=== PATIENT | male | born 1940 | race Caucasian/White ===

== ENCOUNTER 2020-11-15 16:13 | Outpatient (REF) | payer MEDICARE, BC, SELFPAY ==
--- NOTE | 2020-11-15 16:20 | US_ITS ---
EXAMINATION: US RETROPERITONEAL LIMITED (RENAL ONLY) CLINICAL INFORMATION: Calculus of kidney. COMPARISON: Renal ultrasound 09/17/2019 TECHNIQUE: Real-time imaging of the kidneys. FINDINGS: RIGHT KIDNEY: 12.8 x 7.2 x 7.5 cm (SAG x AP x TRV). Kidneys are normal size with cortical thinning but normal echogenicity. There are multiple cysts seen. The largest measures 3.8 x 3.4 x 5.3 cm in upper/midpole. LEFT KIDNEY: 13.5 x 4.5 x 6.1 cm (SAG x AP x TRV). The kidney is normal in size, contour, and echogenicity. Renal cortical thickness is normal. No renal calculi or hydronephrosis. There are multiple anechoic cysts with the largest cyst measuring 2.7 x 2.2 x 2.6 cm in the lower pole. There is isoechoic avascular mass with hypoechoic center in the midpole measuring 3.1 x 2.0 x 2.6 cm. Differential diagnosis includes a complex cyst versus mass. US/US renal BI IMPRESSION: Bilateral renal cysts. No echogenic stones or hydronephrosis. Suspect complex cyst or mass exophytic midpole left kidney not described on the previous [address] 2016, there was focus of central fat with peripheral rim of tissue in the same location exophytic to midpole left kidney thought to be inflammatory process rather than a fatty lesion. Recommend CT kidneys with and without contrast.
[2020-11-15 18:33] LABS: PSA,Total (Free>4and<10) 3.58 ng/mL (0.00-4.00)
== END 2020-11-15 16:14 | disposition home or self-care (01) ==
LOC: HO.US 16:13
PROVIDERS: PCP Internal Medicine; Visit Provider Urology
DX: N20.0 Calculus of kidney (principal); R97.20 Elevated prostate specific antigen [PSA]
CPT/HCPCS: 36415; 76775; 84153

== ENCOUNTER → 2020-11-25 10:34 | Outpatient (BNVA) | payer MEDICARE, BC, SELFPAY | PROVIDERS: PCP Internal Medicine; Visit Provider Urology | DX: N20.0 Calculus of kidney (principal); R97.20 Elevated prostate specific antigen [PSA]; N28.89 Other specified disorders of kidney and ureter | CPT/HCPCS: 81002; 99212 ==

== ENCOUNTER 2020-11-29 10:54 | Outpatient (REF) | payer MEDICARE, BC, SELFPAY ==
[2020-11-29 12:33] LABS: Blood Urea Nitrogen 19 mg/dL (9-16); Estimated Glomerular Filt Rate 51
== END 2020-11-29 10:55 | disposition home or self-care (01) ==
LOC: HO.LAB 10:54
PROVIDERS: Visit Provider Urology
DX: N28.89 Other specified disorders of kidney and ureter (principal); R97.20 Elevated prostate specific antigen [PSA]
CPT/HCPCS: 36415; 82565; 84520

== ENCOUNTER 2020-12-03 13:43 | Outpatient (REF) | payer MEDICARE, BC, SELFPAY ==
--- NOTE | 2020-12-03 13:46 | CT_ITS ---
EXAMINATION: CT ABDOMEN AND PELVIS WITHOUT AND WITH CONTRAST CLINICAL INFORMATION: Follow up renal lesion seen on ultrasound COMPARISON: Previous renal ultrasound most recent 11/15/2020 CT of the abdomen and pelvis June 2019 TECHNIQUE: Multidetector volumetric imaging was performed of the abdomen and pelvis before and after the IV administration of mL of Omnipaque 300 intravenous contrast. Sagittal and coronal reformatted images were obtained on the technologist's workstation. This CT examination was performed using dose optimization techniques as appropriate, variously including the following: *Automated exposure control *Adjustment of mA and/or kV according to patient size (this includes techniques or standardized protocols for targeted exams where dose is matched to indication/reason for exam; i.e. extremities or head) *Use of iterative reconstruction technique DLP: 1638 mGy-cm FINDINGS: LUNG BASES: The visualized lung bases are unremarkable. LIVER, GALLBLADDER, AND BILIARY TREE: The liver is normal in size, shape, and attenuation. No focal hepatic lesion or biliary ductal dilatation is present. The gallbladder is unremarkable with no evidence of radiopaque gallstones, gallbladder wall thickening, or obvious pericholecystic inflammatory changes. PANCREAS: Unremarkable SPLEEN: Unremarkable ADRENAL GLANDS: Unremarkable KIDNEYS AND URETERS: Right: There are two small 1 and 2 mm stones in the lower pole. No hydronephrosis, ureteral dilatation or ureteral stone is seen There are multiple right renal cysts. Largest right renal cyst measures 4 x 3 cm in the upper pole. There is stranding of the perinephric fat adjacent to the lower pole of the right kidney. This is increased from previous exam. Left: There are multiple, greater than 10 left renal stones. Left Largest stone measures 3 mm in the lower pole of the left kidney. No left hydronephrosis, ureteral dilatation or ureteral stone seen. There are multiple left renal cysts. There is a stranding of the perinephric fat adjacent to the lower pole of the left kidney. This is similar to February 2019 exam. BLADDER: There is a 5 x 7 mm stone in the bladder. Prostate gland is enlarged and protrudes into the bladder. GASTROINTESTINAL TRACT: There is diverticulosis of the colon. There is a large left inguinal hernia containing colon. Small and large bowel is otherwise unremarkable. There is an esophageal hernia. ABDOMINAL WALL: Left inguinal hernia containing colon. LYMPH NODES: Normal VASCULAR: There is evidence of atherosclerotic disease. PELVIC VISCERA: The prostate gland is enlarged and protrudes into the base of the bladder. The prostate gland measures 5.2 x 6.3 cm in AP and transverse dimension. OSSEOUS STRUCTURES: There are degenerative changes of the spine. CT/CT abdomen pelvis wo/w con IMPRESSION: Bilateral renal stones, left greater than right. Bilateral renal cysts. Stranding of the perinephric fat adjacent to the lower pole of both kidneys, stable on the left and increased on the right. No suspicious renal lesion seen. Enlarged prostate gland that protrudes into the base of the bladder. 5 x 7 mm bladder stone. Severe diverticulosis of the colon. Large left inguinal hernia containing distal left and proximal sigmoid colon.
[2020-12-03] MEDS: iohexoL 350 MG/ML 100 ML INFUS..BTL 85 ML IV (14:33)
== END 2020-12-03 13:44 | disposition home or self-care (01) ==
LOC: HO.CT 13:43
PROVIDERS: Visit Provider Urology
DX: N28.89 Other specified disorders of kidney and ureter (principal)
CPT/HCPCS: 74178; Q9967

== ENCOUNTER → 2021-02-04 15:21 | Outpatient (BNVA) | payer MEDICARE, BC, SELFPAY | PROVIDERS: PCP Internal Medicine; Visit Provider Urology | DX: N40.1 Benign prostatic hyperplasia with lower urinary tract symptoms (principal); R39.12 Poor urinary stream; N13.8 Other obstructive and reflux uropathy; N28.89 Other specified disorders of kidney and ureter; R39.15 Urgency of urination | CPT/HCPCS: 99212 ==

== ENCOUNTER 2021-07-19 09:28 | Outpatient (REF) | payer MEDICARE, BC, SELFPAY ==
[2021-07-19 11:29] LABS: Blood Urea Nitrogen 29 mg/dL (9-16); Estimated Glomerular Filt Rate 40
== END 2021-07-19 09:29 | disposition home or self-care (01) ==
LOC: HO.LAB 09:28
PROVIDERS: PCP Internal Medicine; Visit Provider Urology
DX: N26.1 Atrophy of kidney (terminal) (principal); N28.89 Other specified disorders of kidney and ureter
CPT/HCPCS: 36415; 82565; 84520

== ENCOUNTER 2021-07-29 08:53 | Outpatient (REF) | payer MEDICARE, BC, SELFPAY ==
--- NOTE | ~2021-07-29 | CT_ITS ---
EXAMINATION: CT ABDOMEN AND PELVIS WITHOUT CONTRAST CLINICAL INFORMATION: Elevated labs. COMPARISON: CT abdomen and pelvis without and with contrast 12/03/2020. TECHNIQUE: Multidetector volumetric imaging was performed from the superior aspect of the liver through the pubic symphysis. Sagittal and coronal reformatted images were obtained on the technologist's workstation. This CT examination was performed using dose optimization techniques as appropriate, variously including the following: *Automated exposure control *Adjustment of mA and/or kV according to patient size (this includes techniques or standardized protocols for targeted exams where dose is matched to indication/reason for exam; i.e. extremities or head) *Use of iterative reconstruction technique DLP: 726 mGy-cm. FINDINGS: LUNG BASES: The visualized lung bases are unremarkable. There is a small hiatal hernia. LIVER, GALLBLADDER, AND BILIARY TREE: The liver is normal in size, shape, and attenuation. No focal hepatic lesion or biliary ductal dilatation is present. There is a solitary gallstone without wall thickening. No pericholecystic fluid collection. PANCREAS: Unremarkable. SPLEEN: Unremarkable. ADRENAL GLANDS: Unremarkable. KIDNEYS AND URETERS: The kidneys are normal in size, shape, and attenuation. There are several hypodense renal lesions most likely simple cysts. There are small bilateral radiopaque renal calculi. There is a 2 mm nonobstructive radiopaque calculi midpole left kidney and a 2 mm nonobstructive radiopaque calculus lower pole calyx right kidney. There are multiple bilateral renal cysts, there is bilateral perinephric stranding with adjacent fat along the lower poles of both kidneys, similar to previous study from 12/03/2020. BLADDER: There are multiple small radiopaque calculi in the dependent portion of the bladder. No bladder wall thickening seen. GASTROINTESTINAL TRACT: There is scattered stool and gas seen throughout the colon without any significant distention. The small bowel loops are normal caliber. There is scattered diverticulosis without diverticulitis. No free air or free fluid. ABDOMINAL WALL: There is a left inguinal hernia containing a loop of sigmoid colon. LYMPH NODES: Normal. VASCULAR: There is atherosclerotic calcification abdominal aorta without aneurysmal dilatation. PELVIC VISCERA: The prostate gland is mildly enlarged. The periprostatic fat planes are preserved. OSSEOUS STRUCTURES: There are degenerative disc changes and spondylosis throughout the lumbar spine. CT/CT abdomen pelvis wo con IMPRESSION: Bilateral nonobstructive radiopaque renal calculi without hydronephrosis. Bilateral renal cysts. There is bilateral perinephric stranding and fat involvement , similar to previous study. There are new radiopaque urinary bladder calculi. There is a left inguinal hernia containing a loop of sigmoid colon and mesenteric fat. It is unchanged.
== END 2021-07-29 08:54 | disposition home or self-care (01) ==
LOC: HO.CT 08:53
PROVIDERS: PCP Internal Medicine; Visit Provider Urology
DX: N28.89 Other specified disorders of kidney and ureter (principal)
CPT/HCPCS: 74176

== ENCOUNTER → 2021-08-09 15:40 | Outpatient (BNVA) | payer MEDICARE, BC, SELFPAY | PROVIDERS: PCP Internal Medicine; Visit Provider Urology | DX: R39.12 Poor urinary stream (principal); N20.0 Calculus of kidney | CPT/HCPCS: 99212 ==

== ENCOUNTER 2021-10-04 10:03 | Outpatient (REF) | payer MEDICARE, BC, SELFPAY ==
[2021-10-04 11:48] LABS: Hematocrit 44.5 % (42.0-52.0); Hemoglobin 14.6 g/dl (14.0-18.0); Mean Corpuscular HGB Conc 32.8 g/dl (31.0-36.0); Mean Corpuscular Hemoglobin 31.9 pg (27.0-33.0); Mean Corpuscular Volume 97.2 fL (80.0-98.0); Mean Platelet Volume 9.9 fL (9.4-12.4); Platelet Count 207 X10*3/uL (160-400); Red Blood Count 4.58 X10*6/uL (4.60-5.80); Red Cell Distribution Width 12.9 % (11.0-16.0); White Blood Count 6.2 X10*3/uL (4.8-10.8)
[2021-10-04 11:57] LABS: Appearance Urine CLEAR; Color Urine YELLOW; Glucose Urine UA NEG (NEG); Leukocyte Esterase Urine NEG (NEG); Nitrite Urine NEG (NEG); Specific Gravity - Urine 1.025 (1.005-1.025); Urine Blood NEG (NEG); Urine Ketones NEG (NEG); Urine Protein NEG (NEG-TRACE)
[2021-10-04 12:12] LABS: Creatinine Urine 127.07 mg/dL; Microalbum/Creatinine Ratio Ur 32.2 ug/mg cr; Total Protein Urine Random 13 mg/dL (<12)
[2021-10-04 12:13] LABS: Calcium 9.9 mg/dL (8.4-10.2); Magnesium 2.2 mg/dL (1.6-2.6); Phosphorus 2.9 mg/dL (2.7-4.5)
[2021-10-04 13:28] LABS: Vitamin D 25-OH Total 39.3 ng/mL (>30)
[2021-10-05 13:41] LABS: Calcium (PTHI) 9.5 mg/dL (8.6-10.3); PTHI 50 pg/mL (14-64)
== END 2021-10-04 10:04 | disposition home or self-care (01) ==
LOC: HO.LAB 10:03
PROVIDERS: PCP Internal Medicine; Visit Provider Internal Medicine Nephrology
DX: N18.32 Chronic kidney disease, stage 3b (principal); N20.0 Calculus of kidney
CPT/HCPCS: 36415; 81003; 82040; 82043; 82306; 82310; 83735; 83970; 84100; 84156; 85027

== ENCOUNTER 2021-11-03 10:05 | Outpatient (REF) | payer MEDICARE, BC, SELFPAY ==
[2021-11-03 11:29] LABS: PSA,Total (Free>4and<10) 3.02 ng/mL (0.00-4.00)
== END 2021-11-03 10:06 | disposition home or self-care (01) ==
LOC: HO.LAB 10:05
PROVIDERS: PCP Internal Medicine; Visit Provider Urology
DX: Z12.5 Encounter for screening for malignant neoplasm of prostate (principal); N40.1 Benign prostatic hyperplasia with lower urinary tract symptoms; N13.8 Other obstructive and reflux uropathy
CPT/HCPCS: 36415; 84153

== ENCOUNTER → 2021-11-16 15:38 | Outpatient (BNVA) | payer MEDICARE, BC, SELFPAY | PROVIDERS: PCP Internal Medicine; Visit Provider Urology | DX: N40.1 Benign prostatic hyperplasia with lower urinary tract symptoms (principal); N13.8 Other obstructive and reflux uropathy; R39.15 Urgency of urination; R35.1 Nocturia; N28.1 Cyst of kidney, acquired | CPT/HCPCS: 51798; 99212 ==

== ENCOUNTER 2021-12-16 09:40 | Outpatient (REF) | payer MEDICARE, BC, SELFPAY ==
[2021-12-16 11:00] LABS: Blood Urea Nitrogen 14 mg/dL (9-16); Calcium 9.8 mg/dL (8.4-10.2); Estimated Glomerular Filt Rate 50
[2021-12-16 11:53] LABS: Appearance Urine CLEAR; Color Urine YELLOW; Glucose Urine UA NEG (NEG); Leukocyte Esterase Urine NEG (NEG); Nitrite Urine NEG (NEG); Specific Gravity - Urine 1.025 (1.005-1.025); Urine Blood NEG (NEG); Urine Ketones NEG (NEG); Urine Protein NEG (NEG-TRACE)
[2021-12-16 12:32] LABS: Creatinine Urine 132.62 mg/dL; Microalbum/Creatinine Ratio Ur 30.9 ug/mg cr; Total Protein Urine Random 12 mg/dL (<12)
[2021-12-16 12:37] LABS: Mucus Urine TRACE /LPF; Squamous Epithelial Cell Urine TRACE /LPF
[2021-12-16 12:39] LABS: RBC Urine 0 /HPF (0); WBC Urine 0-2 /HPF (0-4)
[2021-12-19 16:22] LABS: Calcium (PTHI) 9.6 mg/dL (8.6-10.3); PTHI 68 pg/mL (14-64)
== END 2021-12-16 09:41 | disposition home or self-care (01) ==
LOC: HO.LAB 09:40
PROVIDERS: PCP Internal Medicine; Visit Provider Internal Medicine Nephrology
DX: N18.32 Chronic kidney disease, stage 3b (principal); N20.0 Calculus of kidney; E21.0 Primary hyperparathyroidism
CPT/HCPCS: 36415; 81001; 82043; 82310; 82565; 83970; 84156; 84520

== ENCOUNTER → 2022-02-01 14:05 | Outpatient (BNVA) | payer MEDICARE, BC, SELFPAY | PROVIDERS: PCP Internal Medicine; Visit Provider Urology | DX: N21.0 Calculus in bladder (principal); N13.8 Other obstructive and reflux uropathy; N40.1 Benign prostatic hyperplasia with lower urinary tract symptoms | CPT/HCPCS: 52000; 99212 ==

== ENCOUNTER → 2022-03-14 10:48 | Outpatient (BNVA) | payer MEDICARE, BC, SELFPAY | PROVIDERS: PCP Internal Medicine; Visit Provider Urology | DX: N40.1 Benign prostatic hyperplasia with lower urinary tract symptoms (principal); N13.8 Other obstructive and reflux uropathy; N21.0 Calculus in bladder | CPT/HCPCS: Q3014 ==

== ENCOUNTER 2022-03-20 11:40 | Day surgery (SDC) | payer MEDICARE, BC, SELFPAY ==
--- NOTE | 2022-03-17 10:28 | P.CONAN_ITS ---
Documented by User: Viridiana Cardona NP 03/17/22 10:33 HPI - Anesthesia Eval Consult details Narrative: 81yo M for Cystoscopy Bladder Stone Removal with TUIP PMFSH Active Problems Active Problems: All Active Problems (Updated 03/14/22 @ 14:44 by Lena Arredondo, RN) Elevated PSA (Acute) Bilateral renal stones (Acute) Renal mass (Acute) BPH w urinary obs/LUTS (Acute) Weak urinary stream (Acute) Urinary urgency (Acute) Nocturia more than twice per night (Acute) Renal cyst (Acute) Bladder stones (Acute) Past Medical History Medical History (Updated 03/14/22 @ 14:44 by Lena Arredondo RN) Arthritis BPH (benign prostatic hyperplasia) CKD (chronic kidney disease) Depression Elevated cholesterol GERD (gastroesophageal reflux disease) History of Mohs micrographic surgery for skin cancer HTN (hypertension) Nocturia NAV on CPAP Recurrent oral herpes simplex Renal stones Surgical History Surgical History (Updated 03/14/22 @ 14:43 by Lena Arredondo RN) History of right inguinal hernia repair Social History Social History Patient Tobacco Use Status: Never used Tobacco Are you DNR?: No Advance Directives: No Advance Directives Information Provided: Yes Meds Allergies Allergy/AdvReac Type Severity Reaction Status Date / Time No Known Allergies Allergy Verified 03/14/22 14:45 [No Known Allergies*] Home Medications Medication Instructions Recorded Confirmed Last Taken Type atorvastatin 20 mg tablet 20 mg PO DAILY 02/04/21 03/14/22 Unknown History lansoprazole 30 mg capsule,delayed 30 mg PO DAILY 02/04/21 03/14/22 Unknown History release valacyclovir 500 mg tablet 500 mg PO DAILY 02/04/21 03/14/22 Unknown History ipratropium bromide 21 mcg (0.03 INTRANASAL 11/16/21 Unknown History %) nasal spray olmesartan 20 mg tablet mg PO 11/16/21 Unknown History aspirin 325 mg tablet (Fadi 325 mg PO DAILY 03/20/22 03/20/22 Unknown History Aspirin) [id number] 0.4 mg-calcium 162 tab 03/20/22 03/20/22 03/13/22 History mg-iron 18 [id number] tablet omega-3 fatty acids PO 03/20/22 03/13/22 History Exam Exam Date and Time: March 17, 2022 1028 Pertinent Lab Results Pertinent Lab Results: Laboratory Tests 10/04/21 12/16/21 10:47 10:09 WBC 6.2 Hgb 14.6 Hct 44.5 Plt Count 207 BUN 14 Creatinine 1.36 Lytes WNL 08/2021 at PCP office Assessment and Plan Assessment Anesthesia Assessment: Chart Reviewed Documented by User: Jeffy Sands MD 03/20/22 16:50 [facility] Past Medical History Medical History (Updated 03/14/22 @ 14:44 by Lena Arredondo, RN) Arthritis BPH (benign prostatic hyperplasia) CKD (chronic kidney disease) Depression Elevated cholesterol GERD (gastroesophageal reflux disease) History of Mohs micrographic surgery for skin cancer HTN (hypertension) Nocturia NAV on CPAP Recurrent oral herpes simplex Renal stones Family History Family history of problems with anesthesia: No Surgical History Surgical History (Updated 03/14/22 @ 14:43 by Lena Arredondo, RN) History of right inguinal hernia repair History of Problems with Anesthesia: No Social History Social History Patient Tobacco Use Status: Never used Tobacco Are you DNR?: No Advance Directives: No Advance Directives Information Provided: Yes Meds Allergies Allergy/AdvReac Type Severity Reaction Status Date / Time No Known Allergies Allergy Verified 03/14/22 14:45 [No Known Allergies*] Home Medications Medication Instructions Recorded Confirmed Last Taken Type atorvastatin 20 mg tablet 20 mg PO DAILY 02/04/21 03/14/22 Unknown History lansoprazole 30 mg capsule,delayed 30 mg PO DAILY 02/04/21 03/14/22 Unknown History release valacyclovir 500 mg tablet 500 mg PO DAILY 02/04/21 03/14/22 Unknown History ipratropium bromide 21 mcg (0.03 INTRANASAL 11/16/21 Unknown History %) nasal spray olmesartan 20 mg tablet mg PO 11/16/21 Unknown History aspirin 325 mg tablet (Fadi 325 mg PO DAILY 03/20/22 03/20/22 Unknown History Aspirin) [id number] 0.4 mg-calcium 162 tab 03/20/22 03/20/22 03/13/22 History mg-iron 18 [id number]-qqteibb-yicxms tablet omega-3 fatty acids PO 03/20/22 03/13/22 History Exam Airway Mallampati Class: IV TM Dist: >3cm Neck ROM: Full Loose/Missing/Broken Teeth: Yes (Chipped , poor dentition ) Heart: S1, S2 Lungs: b/l breath sounds Assessment and Plan Assessment Anesthesia Assessment: Anesthesia Plan Discussed Final Anesthetic Review Family History of Problems with Anesthesia: No History of Problems with Anesthesia: No NPO: Yes ASA Class: III Final Preanesthetic Review: Meds/Allgs Chart Reviewed, Consent Obtained/Reviewed and Anes Risks/Benef Reviewed Patient Risk: Intermediate Procedure Risk: Intermediate Anesthetic Plan Anesthetic Plan: GA Disposition: Standard PACU
[2022-03-20] VITALS (9 sets, daily range): BP systolic 120–143; BP diastolic 59–66; PULSE 55–79; RESP 16–18; TEMP 36.1–36.6; O2SAT 96–98; BMI 32.5
--- NOTE | 2022-03-20 | ECG_ITS ---
Test Reason : NAV Blood Pressure : / mmHG Vent. Rate : 079 BPM Atrial Rate : 079 BPM P-R Int : 244 ms QRS Dur : 102 ms QT Int : 364 ms P-R-T Axes : 052 029 027 degrees QTc Int : 417 ms Sinus rhythm with 1st degree A-V block Otherwise normal ECG When compared with ECG of 27-JAN-2016 15:04, No significant change was found Referred By: Viridiana Cardona Electronically Signed By:LISBETH ROJAS
[2022-03-20] MEDS: Lactated Ringers 1,000 ML 100 ML IVCONT (12:37)
--- NOTE | 2022-03-20 14:17 | P.HPSUR_ITS ---
Pre-Procedural Eval Section A Date of Service: 03/20/22 The patient is an INPATIENT: No Changes since office visit: No Cold of Flu in the past 2 weeks, No New Medical Problems, No Changes in Medication and No Patient answered all questions The History & Physical has been completed within 30 days and I have reviewed it.: Yes Section B Chief Complaint: BPH,bladder stone Relevant Family History (Specify if Yes): No Relevant Social History: None Present Medications: see Short Stay Collaborative assessment Medical History: No relevant PMH History of Previous Operations: No relevant previous surgery Allergies: Allergies Allergy/AdvReac Type Severity Reaction Status Date / Time No Known Allergies Allergy Verified 03/14/22 14:45 [No Known Allergies*] Review of Systems Sugical H&P ROS: Negative: Constitution, Cardiovascular, Respiratory, Neurological, Psychiatric, Hem-Onc, Allergic/Immunologic, Gastrointestinal, Genitourinary, Musculoskeletal, Integumentary, Endocrine and Eye s/Ears/Nose/Throat Exam Surgical H&P Exam: Normal: HEENT, Normal: Heart, Normal: Lungs, Normal: Extremities, Normal: Abdomen, Normal: Skin and Normal: Neurological Plan Diagnosis/Plan: Unchanged ( cystoscopy, laser of bladder stone,incision of prostate) I have reviewed the history and physical and performed a pertinent physical examination on my patient. No changes have occurred unless specified.
--- NOTE | 2022-11-22 09:08 | P.OP_ITS ---
Operative Note Operative Note Date of Service: 03/20/22 Narrative: PreOperative Diagnosis: Bladder stones, bladder outlet obstruction Post Operative Diagnosis: Bladder stones multiple 1.5 cm, bladder outlet obstruction Procedure: 1. Cystoscopy with laser of bladder stones 2. Transurethral incision of the prostate using holmium laser Surgeon: Dr Nathanael Villagomez Anesthesia: General Indications for procedure: Cystoscopy with Julius stones within bladder Procedure: After informed consent was verified the patient was brought to the operating terrance m and placed in a supine position. Anesthesia was administered per protocol. The patient was prepped and draped in a sterile fashion. Safety pause time-out was performed. Antibiotics were given. A 24 German laser cystoscope was inserted per urethra. No abnormality noted the anterior posterior urethra. Bladder neck was tied and riding high. Ureteric orifices normal position. Julius stones located within the bladder. Using a 500 micron holmium laser the Julius stones were broken into small pieces and the bladder was irrigated. There were 4 Julius stones each approximately 1.5- 2 cm in size. Once the Julius stone debris had been removed the holmium laser was set to soft tissue settings. Two incisions were made in the prostate each was running in the 05:00 o'clock and 07:00 o'clock positions. The incisions were taken from 1 cm distal to each ureteric orifice down to the veru. Lasering was performed to open the bladder neck at fibers divided with control of bleeding. At the completion the procedure a 22 German Gonzalez catheter was placed and 30 cc placed within the balloon. Patient tolerated procedure well. Was explained operating room. Transferred in stable condition to recovery area. Pathology: Julius stones Drains: Gonzalez catheter
== END 2022-03-20 17:33 | disposition home or self-care (01) ==
PROVIDERS: PCP Internal Medicine; Visit Provider Urology
PROC: 0TCB8ZZ Extirpation of Matter from Bladder, Via Natural or Artificial Opening Endoscopic (ICD-10-PCS; CPT 52352; principal; 2022-03-20 13:40)
DX: N21.0 Calculus in bladder (principal); N40.1 Benign prostatic hyperplasia with lower urinary tract symptoms; N13.8 Other obstructive and reflux uropathy; N32.0 Bladder-neck obstruction; R39.12 Poor urinary stream; R39.15 Urgency of urination; R35.1 Nocturia; I12.9 Hypertensive chronic kidney disease with stage 1 through stage 4 chronic kidney disease, or unspecified chronic kidney disease; F32.9 Major depressive disorder, single episode, unspecified; G47.33 Obstructive sleep apnea (adult) (pediatric); N18.9 Chronic kidney disease, unspecified; N28.1 Cyst of kidney, acquired; K21.9 Gastro-esophageal reflux disease without esophagitis; Z87.442 Personal history of urinary calculi
CPT/HCPCS: 52317; 52450; 88300; 93005; C1758; J1100; J1956; J2405; J3010

== ENCOUNTER → 2022-03-23 10:36 | Outpatient (BNVA) | payer MEDICARE, BC, SELFPAY | PROVIDERS: PCP Internal Medicine; Visit Provider Urology | DX: Z13.89 Encounter for screening for other disorder (principal) ==

== ENCOUNTER → 2022-03-24 11:17 | Outpatient (BNVA) | payer MEDICARE, BC, SELFPAY | PROVIDERS: PCP Internal Medicine; Visit Provider Urology | DX: N21.0 Calculus in bladder (principal) | CPT/HCPCS: 51700; 51701; 51798 ==

== ENCOUNTER → 2022-05-05 14:03 | Outpatient (BNVA) | payer MEDICARE, BC, SELFPAY | PROVIDERS: PCP Internal Medicine; Visit Provider Urology | DX: N40.1 Benign prostatic hyperplasia with lower urinary tract symptoms (principal); N13.8 Other obstructive and reflux uropathy; N21.0 Calculus in bladder; R39.15 Urgency of urination | CPT/HCPCS: 51798; 99212 ==

== ENCOUNTER 2022-06-23 10:54 | Outpatient (REF) | payer MEDICARE, BC, SELFPAY ==
[2022-06-23 11:13] LABS: MANUAL DIFF FLAG NO
[2022-06-23 12:03] LABS: Basophils Percent Auto 0.5 % (0-2); Eosinophils Absolute Auto 0.2 X10*3/uL (0.0-0.4); Eosinophils Percent Auto 2.5 % (0-4); Hematocrit 40.4 % (42.0-52.0); Hemoglobin 13.5 g/dl (14.0-18.0); Imm Gran Abs Auto 0.01 X10*3/uL (0.00-0.03); Imm Gran Pct Auto 0.2 % (0.0-0.4); Lymphocytes Absolute Auto 1.5 X10*3/uL (1.2-4.9); Lymphocytes Percent Auto 26.1 % (20-40); Mean Corpuscular HGB Conc 33.4 g/dl (31.0-36.0); Mean Corpuscular Hemoglobin 31.4 pg (27.0-33.0); Mean Platelet Volume 10.2 fL (9.4-12.4); Monocytes Absolute Auto 0.6 X10*3/uL (0.1-1.2); Monocytes Percent Auto 10.8 % (2-11); Neutrophils Absolute Auto 3.5 x10*3/uL (2.0-8.3); Neutrophils Percent Auto 59.9 % (45-73); Platelet Count 196 X10*3/uL (160-400); Red Cell Distribution Width 13.6 % (11.0-16.0); White Blood Count 5.9 X10*3/uL (4.8-10.8)
[2022-06-23 12:13] LABS: Albumin Level 3.9 g/dL (3.5-5.0); Anion Gap 13 (12-20); Blood Urea Nitrogen 21 mg/dL (9-16); Calcium 9.4 mg/dL (8.4-10.2); Carbon Dioxide 22 mmol/L (22-29); Chloride 111 mmol/L (96-108); Estimated Glomerular Filt Rate 47; Magnesium 2.3 mg/dL (1.6-2.6); Phosphorus 2.9 mg/dL (2.7-4.5); Potassium 4.3 mmol/L (3.3-5.1); Sodium 142 mmol/L (135-145)
[2022-06-23 12:35] LABS: Vitamin D 25-OH Total 37.9 ng/mL (>30)
[2022-06-23 13:05] LABS: Appearance Urine Clear; Color Urine Yellow; Glucose Urine UA Negative (Negative); Leukocyte Esterase Urine Trace (Negative); Nitrite Urine Negative (Negative); PH 5.5 (5.0-8.0); Specific Gravity - Urine >= 1.030 (1.005-1.025); Urine Blood Negative (Negative); Urine Ketones Negative (Negative); Urine Protein Negative (Neg-Trace)
[2022-06-23 13:17] LABS: UACC Culture Trigger YES
[2022-06-23 13:18] LABS: Bacteria Urine Trace (None Seen); Hyaline Casts Urine 0-2 /LPF (0-2); RBC Urine 0-2 /HPF (0-2); Squamous Epithelial Cell Urine 0-2 /HPF (0-2); WBC Clumps Urine Present
[2022-06-24 04:34] LABS: Creatinine Urine 186.52 mg/dL; Microalbum/Creatinine Ratio Ur 18.7 ug/mg cr; Protein/Creatinine Ratio, Ur 0.07 (<0.2); Total Protein Urine Random 13 mg/dL (<12)
[2022-06-25 12:52] LABS: Calcium (PTHI) 9.3 mg/dL (8.6-10.3); PTHI 60 pg/mL (16-77)
== END 2022-06-23 10:55 | disposition home or self-care (01) ==
LOC: HO.LAB 10:54
PROVIDERS: PCP Internal Medicine; Visit Provider Internal Medicine Nephrology
DX: N18.32 Chronic kidney disease, stage 3b (principal); N20.0 Calculus of kidney; E21.0 Primary hyperparathyroidism
CPT/HCPCS: 36415; 80051; 81001; 82040; 82043; 82306; 82310; 82565; 83735; 83970; 84100; 84156; 84520; 85025; 87086; 87088; 87186

== ENCOUNTER → 2022-08-09 12:50 | Outpatient (BNVA) | payer MEDICARE, BC, SELFPAY | PROVIDERS: PCP Internal Medicine; Visit Provider Urology | DX: N20.0 Calculus of kidney (principal); R97.20 Elevated prostate specific antigen [PSA]; R39.15 Urgency of urination; N32.81 Overactive bladder; N40.1 Benign prostatic hyperplasia with lower urinary tract symptoms; N13.8 Other obstructive and reflux uropathy; N28.89 Other specified disorders of kidney and ureter | CPT/HCPCS: Q3014 ==

== ENCOUNTER 2022-10-06 13:50 | Outpatient (REF) | payer MEDICARE, BC, SELFPAY ==
--- NOTE | ~2022-10-06 | US_ITS ---
EXAMINATION: US RETROPERITONEAL LIMITED (RENAL ONLY) CLINICAL INFORMATION: Other specified disorders of kidney and ureter. COMPARISON: CT abdomen and pelvis 07/29/2021, renal ultrasound 11/15/2020 and 09/17/2019. TECHNIQUE: Real-time imaging of the kidneys. FINDINGS: RIGHT KIDNEY: 11.0 x 5.9 x 6.5 cm (SAG x AP x TRV). The kidney is normal in size, contour, and echogenicity. Renal cortical thickness is normal. No hydronephrosis. There are 3 anechoic cysts. The upper pole cyst measures 2.9 x 2.2 x 2.8 cm, the midpole cyst measures 3.4 x 3.7 x 3.2 cm, and the lower pole cyst measures 2.8 x 2.3 x 3.1 cm. There is an echogenic nonobstructive stone lower pole measuring 1.0 x 0.6 x 0.9 cm. There is mild perinephric stranding. LEFT KIDNEY: 12.0 x 5.9 x 7.7 cm (SAG x AP x TRV). The kidney is normal in size, contour, and echogenicity. Renal cortical thickness is normal. No renal calculi or hydronephrosis. There are several renal cysts. A midpole cyst measures 2.1 x 2.2 x 3.2 cm and a midpole cyst measures 3.1 x 2.9 x 2.9 cm. There is a complex solid lesion seen in the midpole laterally measuring 2.99 x 2.09 x 2.75 cm. US/US renal BI IMPRESSION: Bilateral renal cysts. Complex lesion midpole of left kidney. Nonobstructive echogenic stone lower pole of right kidney. No caliectasis or hydronephrosis seen.
== END 2022-10-06 13:51 | disposition home or self-care (01) ==
LOC: HO.US 13:50
PROVIDERS: Visit Provider Urology
DX: N28.89 Other specified disorders of kidney and ureter (principal)
CPT/HCPCS: 76775

== ENCOUNTER 2022-11-03 09:24 | Outpatient (REF) | payer MEDICARE, BC, SELFPAY | END 2022-11-03 09:25 | disposition home or self-care (01) | LOC: HO.LAB 09:24 | PROVIDERS: PCP Internal Medicine; Visit Provider Urology | DX: Z12.5 Encounter for screening for malignant neoplasm of prostate (principal); N13.8 Other obstructive and reflux uropathy; N40.1 Benign prostatic hyperplasia with lower urinary tract symptoms | CPT/HCPCS: 36415; 84153 ==

== ENCOUNTER → 2022-11-15 15:01 | Outpatient (BNVA) | payer MEDICARE, BC, SELFPAY | PROVIDERS: PCP Internal Medicine; Visit Provider Urology | DX: N40.1 Benign prostatic hyperplasia with lower urinary tract symptoms (principal); N13.8 Other obstructive and reflux uropathy; N20.0 Calculus of kidney; N28.1 Cyst of kidney, acquired; R97.20 Elevated prostate specific antigen [PSA] | CPT/HCPCS: 51798; 99212 ==

== ENCOUNTER 2023-06-21 08:22 | Outpatient (REF) | payer MEDICARE, BC, SELFPAY ==
[2023-06-21 08:43] LABS: MANUAL DIFF FLAG NO
[2023-06-21 08:48] LABS: Basophils Percent Auto 0.4 % (0-2); Eosinophils Absolute Auto 0.3 X10*3/uL (0.0-0.4); Eosinophils Percent Auto 5.6 % (0-4); Hemoglobin 12.8 g/dl (14.0-18.0); Imm Gran Abs Auto 0.01 X10*3/uL (0.00-0.03); Imm Gran Pct Auto 0.2 % (0.0-0.4); Lymphocytes Absolute Auto 1.3 X10*3/uL (1.2-4.9); Lymphocytes Percent Auto 25.8 % (20-40); Mean Corpuscular HGB Conc 32.8 g/dl (31.0-36.0); Mean Corpuscular Hemoglobin 30.8 pg (27.0-33.0); Mean Corpuscular Volume 93.8 fL (80.0-98.0); Mean Platelet Volume 9.6 fL (9.4-12.4); Monocytes Absolute Auto 0.6 X10*3/uL (0.1-1.2); Monocytes Percent Auto 11.8 % (2-11); Neutrophils Absolute Auto 2.9 x10*3/uL (2.0-8.3); Neutrophils Percent Auto 56.2 % (45-73); Platelet Count 179 X10*3/uL (160-400); Red Blood Count 4.16 X10*6/uL (4.60-5.80); Red Cell Distribution Width 13.1 % (11.0-16.0); White Blood Count 5.2 X10*3/uL (4.8-10.8)
[2023-06-21 09:40] LABS: Albumin Level 3.6 g/dL (3.5-5.0); Anion Gap 10 (12-20); Blood Urea Nitrogen 25 mg/dL (9-16); Calcium 9.5 mg/dL (8.4-10.2); Carbon Dioxide 24 mmol/L (22-29); Chloride 113 mmol/L (96-108); Estimated Glomerular Filt Rate 43; Magnesium 2.1 mg/dL (1.6-2.6); Phosphorus 2.7 mg/dL (2.7-4.5); Potassium 4.6 mmol/L (3.3-5.1); Sodium 142 mmol/L (135-145)
[2023-06-21 09:51] LABS: Appearance Urine Clear; Color Urine Yellow; Glucose Urine UA Negative (Negative); Leukocyte Esterase Urine Trace (Negative); Nitrite Urine Negative (Negative); PH 5.5 (5.0-9.0); UMIC TRIGGER UA YES; Urine Blood Negative (Negative); Urine Ketones Negative (Negative); Urine Protein Negative (Neg-Trace)
[2023-06-21 09:54] LABS: Bacteria Urine None Seen (None Seen); Hyaline Casts Urine 0-2 /LPF (0-2); RBC Urine 0-2 /HPF (0-2); Squamous Epithelial Cell Urine 0-2 /HPF (0-2); WBC Urine 0-5 /HPF (0-5)
[2023-06-21 10:04] LABS: Vitamin D 25-OH Total 44.2 ng/mL (>30)
[2023-06-21 11:06] LABS: Creatinine Urine 124.82 mg/dL; Microalbum/Creatinine Ratio Ur 21.6 ug/mg cr; Protein/Creatinine Ratio, Ur 0.09 (<0.2); Total Protein Urine Random 11 mg/dL (<12)
[2023-06-25 13:48] LABS: Calcium (PTHI) 9.2 mg/dL (8.6-10.3); PTHI 40 pg/mL (16-77)
== END 2023-06-21 08:23 | disposition home or self-care (01) ==
LOC: HO.LAB 08:22
PROVIDERS: PCP Internal Medicine; Visit Provider Internal Medicine Nephrology
DX: N18.31 Chronic kidney disease, stage 3a (principal); N20.0 Calculus of kidney
CPT/HCPCS: 36415; 80051; 81001; 82040; 82043; 82306; 82310; 82565; 83735; 83970; 84100; 84156; 84520; 85025; 87086; 87088; 87186

== ENCOUNTER 2023-11-01 14:14 | Outpatient (REF) | payer MEDICARE, BC, SELFPAY ==
--- NOTE | ~2023-11-01 | US_ITS ---
EXAMINATION: US RETROPERITONEAL LIMITED (RENAL ONLY) CLINICAL INFORMATION: Cyst of kidney, acquired. COMPARISON: Renal ultrasound 10/06/2022 and 11/15/2020. CT of abdomen and pelvis 07/29/2021. TECHNIQUE: Real-time imaging of the kidneys. FINDINGS: RIGHT KIDNEY: 12.0 x 6.4 x 6.2 cm (SAG x AP x TRV). The kidney is normal in size and echogenicity. Renal cortical thickness is normal. No renal calculi or hydronephrosis. Thinly septated cyst in the mid right kidney measures 3.7 x 3.9 x 3.2 cm, previously measuring 3.4 x 3.7 x 3.2 cm. Likely no significant change from prior. Bosniak 2. No follow-up is recommended. LEFT KIDNEY: 12.0 x 4.2 x 4.3 cm (SAG x AP x TRV). The kidney is normal in size and echogenicity. Renal cortical thickness is normal. No renal calculi or hydronephrosis. Mixed cystic/solid lesion in the lower pole the left kidney measures 3.1 x 2.1 x 2.4 cm, previously measuring 3.0 x 2.1 x 2.8 cm. Likely no significant change from prior. US/US renal BI IMPRESSION: Stable mixed cystic/solid lesion lower pole left kidney. Continued surveillance recommended.
== END 2023-11-01 14:15 | disposition home or self-care (01) ==
LOC: HO.US 14:14
PROVIDERS: PCP Internal Medicine; Visit Provider Urology
DX: N28.1 Cyst of kidney, acquired (principal)
CPT/HCPCS: 76775

== ENCOUNTER 2023-11-13 10:03 | Outpatient (REF) | payer MEDICARE, BC, SELFPAY ==
[2023-11-13 12:29] LABS: Prostate Specific Antigen 3.71 ng/mL (<0.05-4.0)
== END 2023-11-13 10:04 | disposition home or self-care (01) ==
LOC: HO.LAB 10:03
PROVIDERS: PCP Internal Medicine; Visit Provider Urology
DX: Z12.5 Encounter for screening for malignant neoplasm of prostate (principal); R97.20 Elevated prostate specific antigen [PSA]
CPT/HCPCS: 36415; 84153

== ENCOUNTER 2023-11-21 14:37 | Outpatient (AMB) | payer MEDICARE, BC, SELFPAY ==
--- NOTE | 2023-11-21 14:38 | MHC.OFFVIS ---
Intake Intake Visit Reasons: 1Y PSA(set) Intake Note: Patient is Present for Follow Up PSA Urology Medication: Finasteride ( patient stated: never took due to worry about side effects) , Myrbetriq, Tamsulosin Antibiotic Allergies: None Blood Thinners: Aspirin PVR:24 Domestic Travel Consultant Required: No Allergies No Known Allergies [No Known Allergies*] Allergy (Verified 11/21/23 14:47) Medication List - Last Reconciled 11/21/23 by Nathanael Villagomez MD aspirin (Fadi Aspirin) 325 mg PO DAILY atorvastatin 20 mg PO DAILY ipratropium bromide intranasal lansoprazole 30 mg PO DAILY mirabegron ER 50 mg PO DAILY 90 days jr-kyk-EJ-Jn-Tt-awcqpvy-lutein 0.4-162-18 mg tabs olmesartan mg PO omega-3 fatty acids PO sulfamethoxazole-trimethoprim 400-80 mg (Bactrim) 1 tab PO DAILY 10 days tamsulosin 0.4 mg PO BEDTIME 90 days valacyclovir 500 mg PO DAILY HPI HPI Comments History of Present Illness Details Alex is a pleasant male. He is a patient of Dr. Plascencia. He is seen for the following urologic conditions - nephrolithiasis - lower urinary tract symptoms Continue good response combination Myrbetriq and finasteride PVR 24 Bladder emptying PSA slow rise - repeat in 6 months Complex cyst left side 3 cm. Continue interval imaging Nephrolithiasis Longstanding Prior imaging evaluation raised question of renal lesion Here for follow-up after CT Imaging - renal ultrasound 11/25 multiple by renal renal cysts up to 3.5 cm, question of lesion on ultrasound left kidney - CT 12/26 multiple renal stone 3 mm cyst, multiple renal cysts, no evidence of complex cyst - CT 07/26 small renal stone, multiple renal cyst, small stones in bladder no evidence of hydronephrosis - 10/26 renal ultrasound. Multiple bilateral renal cysts up to 3 cm. 1 cm stone on right kidney. 3 cm left complex cyst. Continue with interval imaging Lower urinary tract symptoms Longstanding with weakness of stream and urinary urgency Partial response to alpha-froilan with combination of Myrbetriq for urgency JEANNIE 2+ prostate PSA 11/25 3.6, 11/26 3.0, 11/26 2.9, 11/28 3.7 PFSH Medical History (Updated 11/22/22 @ 09:21 by Nathanael Villagomez MD) Recurrent oral herpes simplex History of Mohs micrographic surgery for skin cancer BPH (benign prostatic hyperplasia) NAV on CPAP Arthritis Depression HTN (hypertension) CKD (chronic kidney disease) GERD (gastroesophageal reflux disease) Elevated cholesterol Renal mass Nocturia Renal stones Surgical History History of right inguinal hernia repair Social History Patient Tobacco Use Status: Never used Tobacco Review of Systems Const Denies chills and Denies fever(s) Card Reports no additional complaints and Denies syncope Resp Denies cough GI Denies abdominal pain and Denies heartburn Reports as per HPI and Denies change in libido Neuro Denies syncope Psych Denies change in libido Endo Denies change in libido Physical Exam Const General: cooperative, healthy appearing, comfortable and no acute distress Orientation/consciousness: patient oriented x3 HEENT Face and sinus: Yes normal facial exam Mouth: moist mucous membranes Neck Neck: Yes normal visual inspection, Yes full ROM and Yes trachea midline Chest Chest palpation & inspection: normal inspection of the chest Resp Effort & Inspection: normal respiratory effort, able to speak in complete sentences and no respiratory distress GI Inspection: Yes normal to inspection Back/Spine/Pelvis Cervical Spine: normal cervical lordosis Thoracic/Lumbar Spine: thoracic and lumbar spine normal to inspection Skin General skin exam: no rashes or lesions noted Neuro General: patient oriented x3, gait normal, tone normal and moves all extremities Extrem General: Yes normal to inspection and Yes capillary refill normal Office Procedures Post Void Residual Post Residual Void Post Void Residual (PVR): 24 [id number] Void Residual by ultrasound Assessment & Plan Assessment & Plan (1) Elevated PSA: Code(s): R97.20 - Elevated prostate specific antigen [PSA] (2) BPH w urinary obs/LUTS: Code(s): N40.1 - Benign prostatic hyperplasia with lower urinary tract symptoms; N13.8 - Other obstructive and reflux uropathy Plan Six-month follow-up PSA Orders: Orders AMB Post Void Residual by ultrasound 11/21/23 N40.1 - Benign prostatic hyperplasia with lower urinary tract symptoms, N13.8 - Other obstructive and reflux uropathy Prostate Specific Antigen 6 Months R97.20 - Elevated prostate specific antigen [PSA] Medications: Refilled mirabegron ER 50 mg PO DAILY 90 tabs 3RF 90 days R39.15 - Urgency of urination, N32.81 - Overactive bladder Discontinued finasteride Discontinued Reason: Patient Completed Course 5 mg PO DAILY 90 days 90 tabs 1RF N13.8 - Other obstructive and reflux uropathy, N40.1 - Benign prostatic hyperplasia with lower urinary tract symptoms, R33.9 - Retention of urine, unspecified Patient Instructions: Imaging studies, laboratory and physical exam results were discussed and reviewed in detail. No major barriers to patient understanding were identified. An opportunity to ask questions regarding the treatment plan was provided. All questions were answered. The patient expressed understanding and agreement with the above treatment plan. The patient is aware they should contact our office by phone for worsening of their current condition or the appearance of new urologic symptoms. Compliance is encouraged with any medications and followup testing that is ordered. It is a privilege to participate in the urologic care of your patient. If you have any questions or concerns regarding treatment for the above conditions, or other urologic issues, please do not hesitate to contact me. The office telephone contact is [phone]. This note is constructed using voice recognition software. While every effort has been made to ensure accuracy home specialist errors may have been included. Yours sincerely, Dr Nathanael Villagomez MD, [facility] - Urology Providers of Expert, Compassionate Care for the Genitourinary System Coding Level of Care Code Est Pt Level 4 (31684) Diagnoses Elevated PSA R97.20 BPH w urinary obs/LUTS N40.1; N13.8 CPT Codes Post Residual Void - PVR CPT Code: 07174-Rafd Void Residual by ultrasound ([id number])
== END 2023-11-21 15:14 | disposition home or self-care (01) ==
PROVIDERS: PCP Internal Medicine; Visit Provider Urology
DX: R97.20 Elevated prostate specific antigen [PSA] (principal); N40.1 Benign prostatic hyperplasia with lower urinary tract symptoms; N13.8 Other obstructive and reflux uropathy
CPT/HCPCS: 99214

== ENCOUNTER → 2023-11-21 14:37 | Outpatient (BNVA) | payer MEDICARE, BC, SELFPAY | PROVIDERS: PCP Internal Medicine; Visit Provider Urology | DX: R97.20 Elevated prostate specific antigen [PSA] (principal); N40.1 Benign prostatic hyperplasia with lower urinary tract symptoms; N13.8 Other obstructive and reflux uropathy; Z79.899 Other long term (current) drug therapy | CPT/HCPCS: 51798; 99212 ==

== ENCOUNTER 2024-05-19 09:53 | Outpatient (REF) | payer MEDICARE, BC, SELFPAY ==
[2024-05-19 11:21] LABS: Prostate Specific Antigen 4.83 ng/mL (<0.05-4.0)
== END 2024-05-19 09:54 | disposition home or self-care (01) ==
LOC: HO.LAB 09:53
PROVIDERS: PCP Internal Medicine; Visit Provider Urology
DX: R97.20 Elevated prostate specific antigen [PSA] (principal); Z12.5 Encounter for screening for malignant neoplasm of prostate
CPT/HCPCS: 36415; 84153

== ENCOUNTER 2024-05-29 10:00 | Outpatient (AMB) | payer MEDICARE, BC, SELFPAY ==
--- NOTE | 2024-05-29 10:03 | MHC.OFFVIS ---
Intake Visit Reasons: 6M Follow Up-PSA/PVR(set) Intake Note: Patient is Present for PVR/PSA Urology Med: Tamsulosin,Myrbetriq Antibiotic Allergy: None Blood Thinner:Aspirin Last PVR: 24 Todays PVR: 43 Patient states that both medications are working well does state he tracks his sleep with his C Pap machine reports that he does get up numerous times during the night Denies any urinary issues or complaints Faucets Assembler Required: No Allergies No Known Allergies [No Known Allergies*] Allergy (Verified 05/29/24 10:10) Medication List - Last Reconciled 05/29/24 by Nathanael Villagomez MD aspirin (Fadi Aspirin) 325 mg PO DAILY atorvastatin 20 mg PO DAILY ipratropium bromide intranasal lansoprazole 30 mg PO DAILY mirabegron ER 50 mg PO DAILY 90 days mm-ajm-AM-Hj-Fw-igoweuc-lutein 0.4-162-18 mg tabs olmesartan mg PO omega-3 fatty acids PO sulfamethoxazole-trimethoprim 400-80 mg (Bactrim) 1 tab PO DAILY 10 days tamsulosin 0.4 mg PO BEDTIME 90 days valacyclovir 500 mg PO DAILY HPI Comments Details: Alex is a pleasant male. He is a patient of Dr. Plascencia. He is seen for the following urologic conditions - nephrolithiasis - lower urinary tract symptoms Continue good response combination Myrbetriq and finasteride PVR 24 Is waking at night Discussed using elevation in the afternoon PSA continuing to rise. Discussed prostate biopsy Will check in 6 months - trial finasteride. Complex cyst left side 3 cm. Continue interval imaging Nephrolithiasis Longstanding Prior imaging evaluation raised question of renal lesion Here for follow-up after CT Imaging - renal ultrasound 11/25 multiple by renal renal cysts up to 3.5 cm, question of lesion on ultrasound left kidney - CT 12/26 multiple renal stone 3 mm cyst, multiple renal cysts, no evidence of complex cyst - CT 07/26 small renal stone, multiple renal cyst, small stones in bladder no evidence of hydronephrosis - 10/26 renal ultrasound. Multiple bilateral renal cysts up to 3 cm. 1 cm stone on right kidney. 3 cm left complex cyst. Continue with interval imaging Lower urinary tract symptoms Longstanding with weakness of stream and urinary urgency Partial response to alpha-froilan with combination of Myrbetriq for urgency JEANNIE 2+ prostate PSA 11/25 3.6, 11/26 3.0, 11/26 2.9, 11/28 3.7, 05/28 4.8 PFSH Medical History Recurrent oral herpes simplex History of Mohs micrographic surgery for skin cancer BPH (benign prostatic hyperplasia) NAV on CPAP Arthritis Depression HTN (hypertension) CKD (chronic kidney disease) GERD (gastroesophageal reflux disease) Elevated cholesterol Renal mass Nocturia Renal stones Surgical History History of right inguinal hernia repair Social History Patient Tobacco Use Status: Never used Tobacco Review of Systems Const Denies chills and Denies fever(s) Card Reports no additional complaints and Denies syncope Resp Denies cough GI Denies abdominal pain and Denies heartburn Reports as per HPI and Denies change in libido Neuro Denies syncope Psych Denies change in libido Endo Denies change in libido Physical Exam Const General: cooperative, healthy appearing, comfortable and no acute distress Orientation/consciousness: patient oriented x3 HEENT Face and sinus: Yes normal facial exam Mouth: moist mucous membranes Neck Neck: Yes normal visual inspection, Yes full ROM and Yes trachea midline Chest Chest palpation & inspection: normal inspection of the chest Resp Effort & Inspection: normal respiratory effort, able to speak in complete sentences and no respiratory distress GI Inspection: Yes normal to inspection Back/Spine/Pelvis Cervical Spine: normal cervical lordosis Thoracic/Lumbar Spine: thoracic and lumbar spine normal to inspection Skin General skin exam: no rashes or lesions noted Neuro General: patient oriented x3, gait normal, tone normal and moves all extremities Extrem General: Yes normal to inspection and Yes capillary refill normal Office Procedures Post Void Residual Post Residual Void Post Void Residual (PVR): 43 [id number] Void Residual by ultrasound Assessment & Plan Assessment & Plan (1) Elevated PSA: Code(s): R97.20 - Elevated prostate specific antigen [PSA] Category: Medical (2) BPH w urinary obs/LUTS: Code(s): N40.1 - Benign prostatic hyperplasia with lower urinary tract symptoms; N13.8 - Other obstructive and reflux uropathy Category: Medical Plan Six-month follow-up Orders: Orders AMB Post Void Residual by ultrasound Today N13.8 - Other obstructive and reflux uropathy, N40.1 - Benign prostatic hyperplasia with lower urinary tract symptoms US renal BI 6 Months N28.1 - Cyst of kidney, acquired Medications: New finasteride For elevated PSA and enlarged prostate 5 mg PO DAILY 90 days 90 tabs 1RF N13.8 - Other obstructive and reflux uropathy, N40.1 - Benign prostatic hyperplasia with lower urinary tract symptoms, R97.20 - Elevated prostate specific antigen [PSA] Patient Instructions: Imaging studies, laboratory and physical exam results were discussed and reviewed in detail. No major barriers to patient understanding were identified. An opportunity to ask questions regarding the treatment plan was provided. All questions were answered. The patient expressed understanding and agreement with the above treatment plan. The patient is aware they should contact our office by phone for worsening of their current condition or the appearance of new urologic symptoms. Compliance is encouraged with any medications and followup testing that is ordered. It is a privilege to participate in the urologic care of your patient. If you have any questions or concerns regarding treatment for the above conditions, or other urologic issues, please do not hesitate to contact me. The office telephone contact is [phone]. This note is constructed using voice recognition software. While every effort has been made to ensure accuracy livestock inspector errors may have been included. Yours sincerely, Dr Nathanael Villagomez MD, [facility] - Urology Providers of Expert, Compassionate Care for the Genitourinary System Coding Level of Care Code Est Pt Level 4 (60401) Diagnoses Elevated PSA R97.20 BPH w urinary obs/LUTS N40.1; N13.8 CPT Codes Post Residual Void - PVR CPT Code: 23509-Kwxm Void Residual by ultrasound ([id number])
== END 2024-05-29 10:41 | disposition home or self-care (01) ==
PROVIDERS: PCP Internal Medicine; Visit Provider Urology
DX: R97.20 Elevated prostate specific antigen [PSA] (principal); N40.1 Benign prostatic hyperplasia with lower urinary tract symptoms; N13.8 Other obstructive and reflux uropathy
CPT/HCPCS: 99214

== ENCOUNTER → 2024-05-29 10:00 | Outpatient (BNVA) | payer MEDICARE, BC, SELFPAY | PROVIDERS: PCP Internal Medicine; Visit Provider Urology | DX: R97.20 Elevated prostate specific antigen [PSA] (principal); N40.1 Benign prostatic hyperplasia with lower urinary tract symptoms; N13.8 Other obstructive and reflux uropathy | CPT/HCPCS: 51798; 99212 ==

== ENCOUNTER 2024-07-21 14:43 | Outpatient (REF) | payer MEDICARE, BC, SELFPAY ==
[2024-07-21 15:27] LABS: MANUAL DIFF FLAG NO
[2024-07-21 16:11] LABS: Basophils Percent Auto 0.4 % (0-2); Eosinophils Absolute Auto 0.2 X10*3/uL (0.0-0.4); Eosinophils Percent Auto 2.6 % (0-4); Hematocrit 40.3 % (42.0-52.0); Hemoglobin 13.4 g/dl (14.0-18.0); Imm Gran Abs Auto 0.01 X10*3/uL (0.00-0.03); Imm Gran Pct Auto 0.2 % (0.0-0.4); Lymphocytes Absolute Auto 1.3 X10*3/uL (1.2-4.9); Lymphocytes Percent Auto 22.1 % (20-40); Mean Corpuscular HGB Conc 33.3 g/dl (31.0-36.0); Mean Corpuscular Hemoglobin 31.1 pg (27.0-33.0); Mean Corpuscular Volume 93.5 fL (80.0-98.0); Mean Platelet Volume 9.3 fL (9.4-12.4); Monocytes Absolute Auto 0.8 X10*3/uL (0.1-1.2); Monocytes Percent Auto 13.8 % (2-11); Neutrophils Absolute Auto 3.5 x10*3/uL (2.0-8.3); Neutrophils Percent Auto 60.9 % (45-73); Platelet Count 196 X10*3/uL (160-400); Red Blood Count 4.31 X10*6/uL (4.60-5.80); Red Cell Distribution Width 13.6 % (11.0-16.0); White Blood Count 5.7 X10*3/uL (4.8-10.8)
[2024-07-21 16:46] LABS: Albumin Level 3.7 g/dL (3.5-5.0); Anion Gap 10 (12-20); Blood Urea Nitrogen 19 mg/dL (9-16); Calcium 9.9 mg/dL (8.4-10.2); Carbon Dioxide 25 mmol/L (22-29); Chloride 107 mmol/L (96-108); Estimated Glomerular Filt Rate 56; Phosphorus 2.7 mg/dL (2.7-4.5); Potassium 4.5 mmol/L (3.3-5.1); Sodium 137 mmol/L (135-145)
[2024-07-21 16:58] LABS: Parathyroid Hormone Intact 52.4 pg/mL (8.7-77.1)
[2024-07-25 15:52] LABS: VITAMIN D (1,25 OH) D3 33 pg/mL; Vit D (1,25-Dihydroxy) Total 33 pg/mL (18-72); Vitamin D (1,25 OH) D2 <8 pg/mL
== END 2024-07-21 14:44 | disposition home or self-care (01) ==
LOC: HO.LAB 14:43
PROVIDERS: PCP Internal Medicine; Visit Provider Internal Medicine Nephrology
DX: N18.32 Chronic kidney disease, stage 3b (principal); N25.0 Renal osteodystrophy; N20.0 Calculus of kidney
CPT/HCPCS: 36415; 80051; 82040; 82310; 82565; 82652; 83735; 83970; 84100; 84520; 85025

== ENCOUNTER 2024-11-13 12:59 | Outpatient (REF) | payer MEDICARE, BC, SELFPAY ==
--- NOTE | ~2024-11-13 | US_ITS ---
CLINICAL HISTORY: N28.1 - Cyst of kidney, acquired US renal with Color Doppler Comparison: None Findings: Right kidney normal in size with increased echotexture and cortical mainnumv64.6 cm length. No nephrolithiasis or hydronephrosis. Normal color flow. Isoechoic shadowing mass lower pole measuring 5.1 x 3.8 x 3.1 cm. Multiple renal cortical cysts largest with a thin septation laterally measuring 3.5 x 4.2 x 3.6 cm. Left kidney normal in size with increased echotexture and cortical xsiumbfb75.8 cm length. No hydronephrosis or nephrolithiasis. Normal color flow. There are renal cortical cysts largest medially lower pole is simple measuring 3.4 x 2.6 x 2.7 cm and exophytic midpole cyst with a thick septation and irregular dee measuring 3.1 x 2.1 x 3.2 cm. Impression: 1. Evidence of nonspecific medical renal disease. Indeterminate right renal mass and complex left renal cyst needs further workup with a CT or MRI with contrast renal protocol study This document has been electronically signed by: Chris Butts MD on 11/17/2024 12:48:39
[2024-11-13 15:26] LABS: PSA,Total (Free>4and<10) 3.72 ng/mL (0.00-4.00)
== END 2024-11-13 13:00 | disposition home or self-care (01) ==
LOC: HO.US 12:59
PROVIDERS: PCP Internal Medicine; Visit Provider Urology
DX: N28.1 Cyst of kidney, acquired (principal); R97.20 Elevated prostate specific antigen [PSA]; Z12.5 Encounter for screening for malignant neoplasm of prostate
CPT/HCPCS: 36415; 76775; 84153

== ENCOUNTER → 2024-11-13 13:00 | Outpatient (BNV) | payer MEDICARE, BC, SELFPAY | PROVIDERS: PCP Internal Medicine; Visit Provider Radiology Diagnostic Radiology | DX: N28.1 Cyst of kidney, acquired (principal) | CPT/HCPCS: 76775 ==

== ENCOUNTER 2024-11-21 15:11 | Outpatient (AMB) | payer MEDICARE, BC, SELFPAY ==
--- NOTE | 2024-11-21 15:12 | A.OFFVIS_ITS ---
Intake Visit Reasons: 6m/US/PSA(set) Intake Note: Patient is present for 6M/US/PSA Urology Medication:TAMSULOSIN,MYRBETRIQ,BACTRIM Antibiotic Allergy:NONE Blood Thinner:ASPIRIN Name Plate Stamping Machine Operator Required: No Allergies No Known Allergies [No Known Allergies*] Allergy (Verified 11/21/24 15:18) HPI Comments Details: Alex is a pleasant male. He is a patient of Dr. Plascencia. He is seen for the following urologic conditions - nephrolithiasis - lower urinary tract symptoms Continue good response combination Myrbetriq and finasteride PVR 24 Is waking at night 4-5 times PSA has stayed stable Plan for bladder ultrasound and check cystoscopy in office Complex cyst left side 3 cm. Continue interval imaging Nephrolithiasis Longstanding Prior imaging evaluation raised question of renal lesion Here for follow-up after CT Imaging - renal ultrasound 11/25 multiple by renal renal cysts up to 3.5 cm, question of lesion on ultrasound left kidney - CT 12/26 multiple renal stone 3 mm cyst, multiple renal cysts, no evidence of complex cyst - CT 07/26 small renal stone, multiple renal cyst, small stones in bladder no evidence of hydronephrosis - 10/26 renal ultrasound. Multiple bilateral renal cysts up to 3 cm. 1 cm stone on right kidney. 3 cm left complex cyst. Continue with interval imaging Lower urinary tract symptoms Longstanding with weakness of stream and urinary urgency Partial response to alpha-froilan with combination of Myrbetriq for urgency JEANNIE 2+ prostate PSA 11/25 3.6, 11/26 3.0, 11/26 2.9, 11/28 3.7, 05/28 4.8, 11/29 3.7 PFSH Medical History Recurrent oral herpes simplex History of Mohs micrographic surgery for skin cancer BPH (benign prostatic hyperplasia) NAV on CPAP Arthritis Depression HTN (hypertension) CKD (chronic kidney disease) GERD (gastroesophageal reflux disease) Elevated cholesterol Renal mass Nocturia Renal stones Surgical History History of right inguinal hernia repair Social History Patient Tobacco Use Status: Never used Tobacco Review of Systems Const Denies chills and Denies fever(s) Card Reports no additional complaints and Denies syncope Resp Denies cough GI Denies abdominal pain and Denies heartburn Reports as per HPI and Denies change in libido Neuro Denies syncope Psych Denies change in libido Endo Denies change in libido Physical Exam Const General: cooperative, healthy appearing, comfortable and no acute distress Orientation/consciousness: patient oriented x3 HEENT Face and sinus: Yes normal facial exam Mouth: moist mucous membranes Neck Neck: Yes normal visual inspection, Yes full ROM and Yes trachea midline Chest Chest palpation & inspection: normal inspection of the chest Resp Effort & Inspection: normal respiratory effort, able to speak in complete sentences and no respiratory distress GI Inspection: Yes normal to inspection Back/Spine/Pelvis Cervical Spine: normal cervical lordosis Thoracic/Lumbar Spine: thoracic and lumbar spine normal to inspection Skin General skin exam: no rashes or lesions noted Neuro General: patient oriented x3, gait normal, tone normal and moves all extremities Extrem General: Yes normal to inspection and Yes capillary refill normal Results AMB Urinalysis, Automated UA Leukoctes 0 Alan/uL Last Edit by CELESTINE Singh on 11/21/24 15:24 UA Nitrite Negative Last Edit by CELESTINE Singh on 11/21/24 15:24 UA Urobilinogen 0.2 mg/dL Last Edit by CELESTINE Singh on 11/21/24 15:2 4 UA Protein 15 mg/dL Last Edit by CELESTINE Singh on 11/21/24 15:24 UA pH 5.5 Last Edit by CELESTINE Singh on 11/21/24 15:24 UA Blood 0 Camacho/uL Last Edit by CELESTINE Singh on 11/21/24 15:24 UA Specific Burr 1.025 Last Edit by CELESTINE Singh on 11/21/24 15: 24 UA Ketone Negative Last Edit by CELESTINE Singh on 11/21/24 15:24 UA Bilirubin 0 mg/dL Last Edit by CELESTINE Singh on 11/21/24 15:24 UA Glucose 0 mg/dL Last Edit by CELESTINE Singh on 11/21/24 15:24 Results Reviewed Results Reviewed: Laboratory Last Values Urine pH (Auto) 5.5 11/21/24 15:24 Specific Burr (Auto) 1.025 11/21/24 15:24 Urine Protein (Auto) 15 mg/dL 11/21/24 15:24 Glucose (UA)(Auto) 0 mg/dL 11/21/24 15:24 Urine Ketones (Auto) Negative 11/21/24 15:24 Urine Blood (Auto) 0 Camacho/uL 11/21/24 15:24 Urine Nitrite (Auto) Negative 11/21/24 15:24 Urine Bilirubin (Auto) 0 mg/dL 11/21/24 15:24 Urine Urobilinogen (Auto) 0.2 mg/dL 11/21/24 15:24 Leukocyte Esterase (Auto) 0 Alan/uL 11/21/24 15:24 Assessment & Plan Assessment & Plan (1) Elevated PSA: Code(s): R97.20 - Elevated prostate specific antigen [PSA] Category: Medical (2) Weak urinary stream: Code(s): R39.12 - Poor urinary stream Category: Medical (3) Urinary urgency: Code(s): R39.15 - Urgency of urination Category: Medical (4) Nocturia more than twice per night: Code(s): R35.1 - Nocturia Category: Medical Plan Bladder ultrasound with cystoscopy Orders: Orders AMB Urinalysis Automated Today Z13.9 - Encounter for screening, unspecified US bladder Today N13.8 - Other obstructive and reflux uropathy, N40.1 - Benign prostatic hyperplasia with lower urinary tract symptoms, R39.12 - Poor urinary stream Patient Instructions: Imaging studies, laboratory and physical exam results were discussed and reviewed in detail. No major barriers to patient understanding were identified. An opportunity to ask questions regarding the treatment plan was provided. All questions were answered. The patient expressed understanding and agreement with the above treatment plan. The patient is aware they should contact our office by phone for worsening of their current condition or the appearance of new urologic symptoms. Compliance is encouraged with any medications and followup testing that is ordered. It is a privilege to participate in the urologic care of your patient. If you have any questions or concerns regarding treatment for the above conditions, or other urologic issues, please do not hesitate to contact me. The office telephone contact is [phone]. This note is constructed using voice recognition software. While every effort has been made to ensure accuracy exhibitions curator errors may have been included. Yours sincerely, Dr Nathanael Villagomez MD, [facility] - Urology Providers of Expert, Compassionate Care for the Genitourinary System Coding Level of Care Code Est Pt Level 3 (60026) Diagnoses Elevated PSA R97.20 Weak urinary stream R39.12 Urinary urgency R39.15 Nocturia more than twice per night R35.1
--- OUTSIDE RECORDS SUMMARY | 2024-11-21 17:42 | XMS_ITS | Data Portability ---
Author Organization [place] - [facility], Allergy Address [address] [place] [phone] Assessment Encounter Date Assessment Date Assessment LastModified by Organization Details LastModified Time 06/25/2024 06/25/2024 Patient with history of right-sided fungal sinusitis status post surgery 2019, chronic rhinitis, obstructive sleep apnea and hearing loss. Unfortunately he cannot afford hearing aids at the present time. There is no evidence of recurrent fungal disease. He will continue Atrovent nasal spray and his CPAP. Follow-up in 1 year or sooner if necessary marco Not available 06/25/2024 09:31:36 Plan of Treatment Reminders Order Date Submit Date Provider Last Modified By Organization Details Last Modified Time Details Appointments Establish ed 15 2024 01:30P M FRANCES SIERRA MD Not available Not available Not available Lab None recorded. Referral None recorded. Procedures None recorded. Surgeries None recorded. Imaging None recorded. Medication Orders ipratropi um bromide 21 mcg (0.03 %) nasal spray 2023 024 [employer] [id number], [address] [facility], [place], [address], 06/25/2024 09:30:53 Patient TargetsNo targets recorded. Patient InstructionsNo instructions recorded. Reason for Referral None Reported. Results Created Date Observation Date Name Description Value Unit Range Abnormal Flag Note LastModifiedBy Organization Detail LastModifiedTime 06/24/20 24 12/22/2019 imagi ng/di agnos tic resul t No observ ation record ed. [email or web address] Not Available 23:10:38 06/24/20 24 12/22/2019 imagi ng/di agnos tic resul t No observ ation record ed. [email or web address] Not Available 23:10:50 06/24/20 24 05/07/2019 imagi ng/di agnos tic resul t No observ ation record ed. [email or web address] Not Available 23:11:00 06/24/20 24 05/07/2019 imagi ng/di agnos tic resul t No observ ation record ed. [email or web address] Not Available 23:11:04 06/24/20 24 07/06/2023 imagi ng/di agnos tic resul t No observ ation record ed. [email or web address] Not Available 23:11:12 06/24/20 24 07/23/2019 imagi ng/di agnos tic resul t No observ ation record ed. [email or web address] Not Available 23:12:17 06/24/20 24 09/02/2019 imagi ng/di agnos tic resul t No observ ation record ed. [email or web address] Not Available 23:12:30 06/24/20 24 12/22/2019 audio gram No observ ation record ed. [email or web address] Not Available 23:13:08 06/24/20 24 07/06/2023 audio gram No observ ation record ed. [email or web address] Not Available 23:13:35 Result Notes None recorded. Problems Name Problem SNOMED Code Status Onset Date Resolution Date Notes Provider Name and Address Organization Details Recorded Time Deviated nasal septum 400748110 Active 2018 Deviated nasal septum; Note: Date Diagnosed: 09/02/2019 3:53 PM (J34.2) Not Available [facility] 4 02:18:47 Sensorine ural hearing loss of bilateral ears 925511250 Active 2019 Sensorineu ral hearing loss, bilateral; Note: Date Diagnosed: 12/22/2019 4:00 PM (H90.3) Not Available [facility] 4 02:18:49 Chronic sinusitis 43723101 Active 2018 Other chronic sinusitis; Note: Date Diagnosed: 07/22/2019 10:35 AM (J32.8) Not Available [facility] 02:18:16 Chronic rhinitis 01156301 Active 2020 Chronic rhinitis; Note: Date Diagnosed: 03/21/2021 11:30 AM (J31.0) Not Available [facility] 4 02:18:59 Follow-up visit Active 2018 Encounter for follow-up examinatio n after completed treatment for conditions other than malignant neoplasm; Note: Date Diagnosed: 09/05/2019 2:43 PM (Z09) Not Available [facility] 4 02:19:03 Obstructi ve sleep apnea syndrome 74374671 Active 2018 Obstructiv e sleep apnea (adult) (pediatric ); Note: Date Diagnosed: 07/22/2019 10:41 AM (G47.33) Not Available [facility] 4 02:18:46 Problem Notes None recorded. Procedures Surgical History Date Name Laterality Status Provider Name and Address Organization Details Recorded Time 4 JMSNasal/Sinus Endoscopy-PRIOR surgical cavities completed FRANCES SHAW MD [address] [place] [address], [phone], [place] - [facility] 06/25/2024 09:32:34 functional endoscopic sinus surgery completed FRANCES SHAW MD [address] [place] [address],[address], [address], [place] - [facility] 06/24/2024 21:47:45 Repair of nasal septum completed FRANCES SHAW MD [address] [place] [address],[address], [address], [place] - [facility] 06/24/2024 21:47:55 Imaging Results Imaging Date Name Status LastModified by [email or web address] Details LastModified Time 12/22/2019 imaging/diagno stic result completed Information not available 06/24/2024 23:10:38 12/22/2019 imaging/diagno stic result completed Information not available 06/24/2024 23:10:50 05/07/2019 imaging/diagno stic result completed Information not available 06/24/2024 23:11:00 05/07/2019 imaging/diagno stic result completed Information not available 06/24/2024 23:11:04 07/06/2023 imaging/diagno stic result completed Information not available 06/24/2024 23:11:12 07/23/2019 imaging/diagno stic result completed Information not available 06/24/2024 23:12:17 09/02/2019 imaging/diagno stic result completed Information not available 06/24/2024 23:12:30 12/22/2019 audiogram completed Information not available 06/24/2024 23:13:08 07/06/2023 audiogram completed Information not available 06/24/2024 23:13:35 Procedure Notes None recorded. Medical Equipment None Reported. Medications Name Sig Start Date Stop Date Status Note LastModified by Organization Details LastModified Time flaxseed oil 2018 active Medicati on ID: [id number] B rand Name: flaxseed oil Send Method: E-Prescr ibed Sub s Allowed: subs OK Medic ationGen ericName : flaxseed oil Not Available Not Available Not Available atorvasta tin 20 mg tablet active Not Available Not Available Not Available diphenoxy late-atro pine 2.5 mg-0.025 mg tablet TAKE 1 TABLET BY MOUTH EVERY 8 HOURS NEEDED active Not Available Not Available No t Available betametha sone valerate 0.1 % lotion APPLY TO EARS TWICE DAILY NEEDED active Not Available Not Available No t Available valacyclo vir 500 mg tablet active Not Available Not Available No t Available ciproflox acin 500 mg tablet 03/21 completed Medicati on ID: [id number] D uration Value: 7 Brand Name: ciproflo xacin HCl Send Method: E-Prescr ibed Sub s Allowed: subs OK Speci al Instruct ion: TAKE ONE TABLET BY MOUTH TWICE A DAY Medi cationGe nericNam e: ciproflo xacin HCl Not Available Not Available Not Available tamsulosi n 0.4 mg capsule active Not Available Not Available Not Available doxycycli ne monohydra te 100 mg capsule 1 capsule by mouth 2018 active Medicati on ID: [id number] D uration Value: 10 Prescri bed By Name: Amish Cintron nd Name: doxycycl ine monohydr ate Send Method: E-Prescr ibed Sub s Allowed: subs OK Medic ationGen ericName : doxycycl ine monohydr ate Not Available Not Available Not Available lansopraz ole 30 mg capsule,d elayed release active Not Available Not Available Not Available budesonid e 0.25 mg/2 mL suspensio n for nebulizat ion 1 vial 2018 active Medicati on ID: [id number] D uration Value: 30 Prescri bed By Name: JOSY Scruggs nd Name: budesoni de Send Method: E-Prescr ibed Sub s Allowed: subs OK Speci al Instruct ion: add one vial to one nasal rinse per day and irrigate as usual Me dication GenericN grover: budesoni de Not Available Not Available Not Available cephalexi n 500 mg tablet TAKE ONE TABLET BY MOUTH FOUR TIMES A DAY active Not Available Not Available No t Available Fadi Aspirin 325 mg tablet 2018 active Medicati on ID: [id number] B rand Name: Fadi Aspirin Send Method: E-Prescr ibed Sub s Allowed: subs OK Medic ationGen ericName : Fadi Aspirin Not Available Not Available Not Available doxycycli ne hyclate 100 mg tablet TAKE 1 TABLET BY MOUTH TWICE A DAY FOR 7 DAYS active Not Available Not Available No t Available ipratropi um bromide 21 mcg (0.03 %) nasal spray INHALE 2 SPRAYS THREE TIMES A DAY DIRECTED active Not Available Not Available No t Available finasteri de 5 mg tablet active Not Available Not Available Not Available olmesarta n 20 mg tablet active Not Available Not Available Not Available olmesarta n 40 mg tablet active Not Available Not Available Not Available Flonase 2 puff into both nostrils 2018 active Medicati on ID: [id number] D uration Value: 120 Brand Name: flonase Send Method: E-Prescr ibed Sub s Allowed: subs OK Medic ationGen ericName : flonase Not Available Not Available Not Available betametha sone a small amount to affected area 2018 active Medicati on ID: [id number] D uration Value: 30 Brand Name: betameth asone Se nd Method: E-Prescr ibed Sub s Allowed: subs OK Speci al Instruct ion: apply to flaking ears Med icationG enericNa me: betameth asone Not Available Not Available Not Available Centrum Silver 2018 active Medicati on ID: [id number] B rand Name: centrum silver S end Method: E-Prescr ibed Sub s Allowed: subs OK Medic ationGen ericName : centrum silver Not Available Not Available Not Available Vitamin D3 2018 active Medicati on ID: [id number] B rand Name: vitamin d3 Send Method: E-Prescr ibed Sub s Allowed: subs OK Medic ationGen ericName : vitamin d3 Not Available Not Available Not Available Gaby Allergy 180 mg tablet 1 tablet by mouth 2018 active Medicati on ID: [id number] D uration Value: 30 Brand Name: Gaby Allergy Send Method: E-Prescr ibed Sub s Allowed: subs OK Medic ationGen ericName : Gaby Allergy Not Available Not Available Not Available Aleve 220 mg capsule 2018 active Medicati on ID: [id number] B rand Name: Aleve Se nd Method: E-Prescr ibed Sub s Allowed: subs OK Medic ationGen ericName : Aleve Not Available Not Available Not Available Myrbetriq 50 mg tablet,ex tended release active Not Available Not Available Not Available Fish Oil 1,000 mg (120 mg-180 mg) capsule 2018 active Medicati on ID: [id number] B rand Name: Fish Oil Send Method: E-Prescr ibed Sub s Allowed: subs OK Medic ationGen ericName : Fish Oil Not Available Not Available Not Available Vitals Date Recorded Body height Body mass index (BMI) Body weight Provider Name and Address Organization Details Last Updated DateTime 06/25/2024 182.88 cm 30.5 kg/m2 161181.28 g Pan Sarah [place] - [facility] 06/25/2024 09:10:11 Social History None recorded. Functional Status None recorded. Mental Status None recorded. Family History Nothing Reported. Medical History No medical history recorded. Past Encounters Encounter ID Performer Location Encounter Start Date Encounter Closed Date Diagnosis/Indication Diagnosis SNOMED-CT Code Diagnosis ICD10 Code Diagnosis Note [id number] FRANCES ROJO MD [facility] [address] [address] 06/25/2024 08:57:55 06/25/2024 09:34:29 Chronic rhinitis 01957207 J31.0 Obstructiv e sleep apnea syndrome 74428589 G47.33 Sensorineu ral hearing loss of bilateral ears 949703937 H90.3 Health Concerns Section Related Observation LastModified by Organization Detai ls LastModified Time None Recorded Concern Status LastModified by Organization Details LastModified Time None Recorded Advance Directives Directive None Recorded Payers Encounter Date Sequence Insurance Name Policy Number Policy Rubio Covered Member ID Ruboi Member ID Guarantor Name 06/25/2024 1 [place]ARE [place]: [employer] Alex Prado [id number] Alex Prado 06/25/2024 2 [facility]: [place]GRAM (PPO) 106 Alex Batsheva Johan [id number] Alex Prado Notes Date Note Type Note Provider Name and Address Organization Details Recorded Time 06/25/2024 text/html f/u chronic fungal sinusitis, [facility]. He took a fall weekend and sustained non-displaced fx of nose. Nasal breathing good. Still needs Atrovent. Hx of right FESS 2018 FRANCES SHAW MD [address] [place] [address], [place], [address], [facility] - [facility] 06/25/2024 09:33:00
== END 2024-11-21 16:18 | disposition home or self-care (01) ==
PROVIDERS: PCP Internal Medicine; Visit Provider Urology
DX: R97.20 Elevated prostate specific antigen [PSA] (principal); R39.12 Poor urinary stream; R39.15 Urgency of urination; R35.1 Nocturia; Z13.9 Encounter for screening, unspecified
CPT/HCPCS: 99213

== ENCOUNTER → 2024-11-21 15:11 | Outpatient (BNVA) | payer MEDICARE, BC, SELFPAY | PROVIDERS: PCP Internal Medicine; Visit Provider Urology | DX: R39.12 Poor urinary stream (principal); R39.15 Urgency of urination; R35.1 Nocturia; R97.20 Elevated prostate specific antigen [PSA] | CPT/HCPCS: 81003; 99212 ==

== ENCOUNTER 2024-12-30 12:56 | Outpatient (REF) | payer MEDICARE, BC, SELFPAY ==
--- NOTE | ~2024-12-30 | US_ITS ---
EXAMINATION: US BLADDER HISTORY: R39.12 - Poor urinary stream COMPARISON: There are no prior studies for comparison. FINDINGS: Sonographic examination of the urinary bladder was performed before and after voiding. Before voiding, the urinary bladder measured 7.0 x 8.2 x 8.1, for an estimated volume of245 mL. After voiding, the urinary bladder measured6.0 x 5.8 x 7.9, for an estimated volume of 142 mL. There is a 10 mm shadowing echogenic focus within the urinary bladder which likely represents a calculus. Bilateral ureteral jets are identified. The prostate is enlarged measuring 5.3 x 1.9 x 7.3 cm. US/US bladder IMPRESSION: 1. Post void bladder residual of 142 mL. 2. Probable 10 mm bladder calculus. 3. Enlargement of the prostate. Electronically signed by: Dru Serrano MD 12/30/2024 02:53 PM FRANCISCO
--- OUTSIDE RECORDS SUMMARY | 2024-12-30 15:45 | XMS_ITS | Data Portability ---
Author Organization [place] - [facility], Allergy Address [address] [place] [phone] Assessment Encounter Date Assessment Date Assessment LastModified [...] mcg (0.03 %) nasal spray 2023 024 [employer] [facility], [address] [facility], [place], [address], 06/25/2024 09:30:53 Patient TargetsNo targets recorded. Patient [...] Organization Details Recorded Time Deviated nasal septum 637937795 Active 2018 Deviated nasal septum; Note: Date Diagnosed: 09/02/2019 3:53 PM (J34.2) Not Available [facility] 4 02:18:47 Sensorine ural hearing loss of bilateral ears 538733359 Active 2019 Sensorineu ral hearing loss, bilateral; Note: Date Diagnosed: 12/22/2019 4:00 PM (H90.3) Not Available [facility] 4 02:18:49 Chronic sinusitis 50817354 Active 2018 Other chronic sinusitis; Note: Date Diagnosed: 07/22/2019 10:35 AM (J32.8) Not Available [facility] 4 02:18:16 Chronic rhinitis 48540798 Active 2020 Chronic rhinitis; Note: Date Diagnosed: 03/21/2021 11:30 AM (J31.0) Not Available [facility] 4 02:18:59 Follow-up visit Active 2018 Encounter for follow-up examinatio n after completed treatment for conditions other than malignant neoplasm; Note: Date Diagnosed: 09/05/2019 2:43 PM (Z09) Not Available [facility] 4 02:19:03 Obstructi ve sleep apnea syndrome 73725531 Active 2018 Obstructiv e sleep apnea (adult) (pediatric ); Note: Date Diagnosed: 07/22/2019 10:41 AM (G47.33) Not Available [facility] 4 02:18:46 Problem Notes None recorded. Procedures Surgical History Date Name Laterality Status Provider Name and Address Organization Details Recorded Time 4 JMSNasal/Sinus Endoscopy-PRIOR surgical cavities completed FRANCES SHAW MD [address] [place] [address], [phone], [place] - [facility] 06/25/2024 09:32:34 functional endoscopic sinus surgery completed FRANCES SHAW MD [address] [place] [address],[address], [address], [place] - [facility] 06/24/2024 21:47:45 Repair of nasal septum completed FRANCES HSAW MD [address] [place] [address],[address], [address], [place] - [facility] 06/24/2024 21:47:55 Imaging Results Imaging Date Name Status LastModified by Organ [facility] Details LastModified Time 12/22/2019 imaging/diagno stic result [...] flaxseed oil 2018 active Medicati on ID: [id number] B rand Name: flaxseed oil Send Method: [...] mg tablet 03/21 completed Medicati on ID: [id number] D uration Value: 7 Brand Name: ciproflo [...] by mouth 2018 active Medicati on ID: [id number] D uration Value: 10 Prescri bed By [...] 1 vial 2018 active Medicati on ID: [id number] D uration Value: 30 Prescri bed By [...] mg tablet 2018 active Medicati on ID: [id number] B rand Name: Fadi Aspirin Send Method: [...] both nostrils 2018 active Medicati on ID: [id number] D uration Value: 120 Brand Name: flonase Send Method: E-Prescr ibed Sub s Allowed: subs OK Medic ationGen ericName : flonase Not Available Not Available Not Available betametha sone a small amount to affected area 2018 active Medicati on ID: [id number] D uration Value: 30 Brand Name: betameth asone Se nd Method: E-Prescr ibed Sub s Allowed: subs OK Speci al Instruct ion: apply to flaking ears Med icationG enericNa me: betameth asone Not Available Not Available Not Available Centrum Silver 2018 active Medicati on ID: [id number] B rand Name: centrum silver S end Method: E-Prescr ibed Sub s Allowed: subs OK Medic ationGen ericName : centrum silver Not Available Not Available Not Available Vitamin D3 2018 active Medicati on ID: [id number] B rand Name: vitamin d3 Send Method: E-Prescr ibed Sub s Allowed: subs OK Medic ationGen ericName : vitamin d3 Not Available Not Available Not Available Gab[facility] 180 mg tablet 1 tablet by mouth 2018 active Medicati on ID: [id number] D uration Value: 30 Brand Name: Gaby Allergy Send Method: E-Prescr ibed Sub s Allowed: subs OK Medic ationGen ericName : Gab[facility] Not Available Not Available Not Available Aleve 220 mg capsule 2018 active Medicati on ID: [id number] B rand Name: Aleve Se nd Method: E-Prescr ibed Sub s Allowed: subs OK Medic ationGen ericName : Aleve Not Available Not Available Not Available Myrbetriq 50 mg tablet,ex tended release active Not Available Not Available Not Available Fish Oil 1,000 mg (120 mg-180 mg) capsule 2018 active Medicati on ID: [id number] B rand Name: Fish Oil Send Method: E-Prescr ibed Sub s Allowed: subs OK Medic ationGen ericName : Fish Oil Not Available Not Available Not Available Vitals Date Recorded Body height Body mass index (BMI) Body weight Provider Name and Address Organization Details Last Updated DateTime 06/25/2024 182.88 cm 30.5 kg/m2 078950.28 g Pan Sarah [place] - [facility] 06/25/2024 09:10:11 Social History None recorded. Functional Status None recorded. Mental Status None recorded. Family History Nothing Reported. Medical History No medical history recorded. Past Encounters Encounter ID Performer Location Encounter Start Date Encounter Closed Date Diagnosis/Indication Diagnosis SNOMED-CT Code Diagnosis ICD10 Code Diagnosis Note [id number] FRANCES ROJO MD [facility] [address] [address] 06/25/2024 08:57:55 06/25/2024 09:34:29 Chronic rhinitis 12664981 J31.0 Obstructiv e sleep apnea syndrome 52452793 G47.33 Sensorineu ral hearing loss of bilateral ears 883322386 H90.3 Health Concerns Section Related Observation LastModified by Organization Detai ls LastModified Time None Recorded Concern Status LastModified by Organization Details LastModified Time None Recorded Advance Directives Directive None Recorded Payers Encounter Date Sequence Insurance Name Policy Number Policy Rubio Covered Member ID Rubio Member ID Guarantor Name 06/25/2024 1 MEDICARE [place] [employer] Alex Prado [id number] Alex Prado 06/25/2024 2 [facility]: FEDERAL EMPLOYEE PROGRAM (PPO) [id number] Alex Batsheva Johan [id number] Alex Prado Notes Date Note Type Note Provider Name and Address Organization Details Recorded Time 06/25/2024 text/html f/u chronic fungal sinusitis, [facility]. He took a fall weekend and sustained non-displaced fx of nose. Nasal breathing good. Still needs Atrovent. Hx of right FESS 2018 FRANCES SHAW MD [address] [place] [address], [place], [address], [facility] - [facility] 06/25/2024 09:33:00
--- OUTSIDE RECORDS SUMMARY | 2024-12-30 15:45 | XMS_ITS | Clinical Summary ---
Author Organization [facility] Address [address] [facility] [address] [place] [address] Phone Care Team Providers Care Butting Saw Operator Name Role Phone Travon Plascencia MD Primary Care Provider [phone] Allergies No known active allergies Medications tamsulosin (FLOMAX) 0.4 MG 24 hr capsule Take 0.4 mg by mouth daily Active Myrbetriq 50 MG tablet sustained-relea se 24 hour 1 Active valACYclovir (VALTREX) 500 MG tablet Take 500 mg by mouth twice a day Active betamethasone valerate (VALISONE) 0.1 % ointment Apply topically twice a day Active olmesartan (BENICAR) 40 MG tablet Take 40 mg by mouth daily Active atorvastatin (LIPITOR) 20 MG tablet 1 Active lansoprazole (PREVACID) [address] capsule Take 30 mg by mouth daily Active cholecalciferol (VITAMIN D-3) 25 MCG (1000 UT) tablet Take 1,000 Units by mouth daily Active Mcintosh-3 1000 MG capsule Take by mouth daily Active Active Problems Problem Noted Date Diagnosed Date Stage 3a chronic kidney disease 07/03/2022 Renal osteodystrophy 07/03/2022 Stage 3b chronic kidney disease 09/19/2021 Tendinitis of right posterior tibial tendon 02/2021 Plantar fasciitis of left foot 05/08/2021 Primary hyperparathyroidism 07/21/2009 Overview (09/19/2021): ?Primary hyperparathyroidism. H/o borderline iCa 1.29, PTH 118. C/b by nephrolithiasis. Serum total Ca have been normal, mostly <10 mg/dL. Phos normal. 25 vit D >20 ng/dL. He is asymptomatic. He does not have osteoporosis or fractures. Last Assessment & Plan: Serum calcium levels remain normal. DEXA 01/04/2017 was normal at the hip sites and 1/3 radius. Latter can be preferentially low in primary hyperparathyroidism, but his bone density is actually excellent at this site. Will manage conservatively for now. Increase dietary calcium intake and decrease calcium supplementation. 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 Typically an episode every 5 years. He has had multiple procedures [lithotripsy and stone retrieval] over the years. He is followed by a Urologist in [facility]. 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 Multiple 24 hour urine collections have shown: Ca on higher side around 300 mg, cysteine 200-300, oxalate around 40. Last episode was in 08/2015 when x-ray showed left-sided stone that he apparently passed spontaneously. In 01/2016 was found to have more stones, s/p cystoscopy, lithotripsy and stent. Last Assessment & Plan: No symptomatic or radiologic evidence of stones 2018. Encouraged increased fluid intake. BP controlled today. If an additional agent is needed, a thiazide diuretic should be considered [as it decreases urinary calcium excretion]. Immunizations Name Administration Dates Next Due Influenza (IM) Preservative Free 08/05/2012 Influenza, Unspecified 08/09/2011,2009,08/19/2009,08/24/2008 ,08/16/2007,09/13/2005,11/10/2004 Family History Relation Status Comments Father Mother Social History Tobacco Use Types Packs/Day Years Used Date Smoking Tobacco: Never Assessed Sex and Gender Information Value Date Recorded Sex Assigned at Not on file Legal Sex Male 5:12 PM EST Gender Identity Not on file Sexual Orientation Not on file Last Filed Vital Signs Vital Sign Reading Time Taken Comments Blood Pressure 127/66 07/28/2024 1:06 PM EDT Pulse 64 07/28/2024 1:06 PM EDT Temperature - - Respiratory Rate - - Oxygen Saturation 97% 07/28/2024 1:06 PM EDT Inhaled Oxygen Concentration - - Weight 105 kg (230 lb 9.6 oz) 07/28/2024 1:06 PM EDT Height - - Body Mass Index - - Plan of Treatment Upcoming Encounters Date Type Department Care Team (Late st Contact Info) Description 08/03/2025 1:00 PM EDT Office Visit [facility] [address] [place] [address] Nikhil Monique MD [address] [facility] [address] [place] [id number] Health Maintenance Due Date Last Done Comments Pneumococcal Vaccine: 65+ Years (1 of 2 - PCV) 1946 Influenza Vaccine (#1) 2024 2, 08/09/2011, 08/16/2010, Additional history exists Hepatitis B Vaccine Aged Out No longe r eligible based on patient's age to complete this topic Insurance MEDICARE [facility] Care Teams Butting Saw Operator Relationship Specialty Start Date End Date Travon Plascencia MD [facility] [address] [place] [address] [address] [place], [place] PCP - General Internal Medicine 09/14/21
== END 2024-12-30 12:57 | disposition home or self-care (01) ==
LOC: HO.US 12:56
PROVIDERS: PCP Internal Medicine; Visit Provider Urology
DX: R39.12 Poor urinary stream (principal); N40.1 Benign prostatic hyperplasia with lower urinary tract symptoms; N13.8 Other obstructive and reflux uropathy
CPT/HCPCS: 76857

== ENCOUNTER → 2024-12-30 12:58 | Outpatient (BNV) | payer MEDICARE, BC, SELFPAY | PROVIDERS: PCP Internal Medicine; Visit Provider Radiology Diagnostic Radiology | DX: R39.12 Poor urinary stream (principal); N40.0 Benign prostatic hyperplasia without lower urinary tract symptoms | CPT/HCPCS: 76857 ==

== ENCOUNTER 2025-01-27 14:17 | Outpatient (AMB) | payer MEDICARE, BC, SELFPAY ==
--- NOTE | 2025-01-27 14:24 | A.OFFVIS_ITS ---
Intake Visit Reasons: 6w/US Intake Note: Patient is present for 63/US Urology Medication:TAMSULOSIN,MIRABEGON,BACTRIM Antibiotic Allergy:NONE Blood Thinner:ELIQUIS [facility] Required: No Allergies No Known Allergies [No Known Allergies*] Allergy (Verified 01/27/25 14:26) HPI Comments Details: Alex is a pleasant male. He is a patient of Dr. Plascencia. He is seen for the following urologic conditions - nephrolithiasis - lower urinary tract symptoms Three-month follow-up - bladder ultrasound with possible bladder calculus, enlarged prostate, incomplete bladder emptying Cystoscopy shows enlarged prostate particularly median lobe Discussed prostate procedure versus finasteride He is willing to retry finasteride Is waking at night 4-5 times PSA has stayed stable Complex cyst left side 3 cm. Continue interval imaging Nephrolithiasis Longstanding Prior imaging evaluation raised question of renal lesion Here for follow-up after CT Imaging - renal ultrasound 11/25 multiple by renal renal cysts up to 3.5 cm, question of lesion on ultrasound left kidney - CT 12/26 multiple renal stone 3 mm cyst, multiple renal cysts, no evidence of complex cyst - CT 07/26 small renal stone, multiple renal cyst, small stones in bladder no evidence of hydronephrosis - 10/26 renal ultrasound. Multiple bilateral renal cysts up to 3 cm. 1 cm stone on right kidney. 3 cm left complex cyst. Continue with interval imaging Lower urinary tract symptoms Longstanding with weakness of stream and urinary urgency Partial response to alpha-froilan with combination of Myrbetriq for urgency JEANNIE 2+ prostate PSA 11/25 3.6, 11/26 3.0, 11/26 2.9, 11/28 3.7, 05/28 4.8, 11/29 3.7 [facility] Medical History Recurrent oral herpes simplex History of Mohs micrographic surgery for skin cancer BPH (benign prostatic hyperplasia) NAV on CPAP Arthritis Depression HTN (hypertension) CKD (chronic kidney disease) GERD (gastroesophageal reflux disease) Elevated cholesterol Renal mass Nocturia Renal stones Surgical History History of right inguinal hernia repair Social History Patient Tobacco Use Status: Never used Tobacco Review of Systems Const Denies chills and Denies fever(s) Card Reports no additional complaints and Denies syncope Resp Denies cough GI Denies abdominal pain and Denies heartburn Reports as per HPI and Denies change in libido Neuro Denies syncope Psych Denies change in libido Endo Denies change in libido Physical Exam Const General: cooperative, healthy appearing, comfortable and no acute distress Orientation/consciousness: patient oriented x3 HEENT Face and sinus: Yes normal facial exam Mouth: moist mucous membranes Neck Neck: Yes normal visual inspection, Yes full ROM and Yes trachea midline Chest Chest palpation & inspection: normal inspection of the chest Resp Effort & Inspection: normal respiratory effort, able to speak in complete sentences and no respiratory distress GI Inspection: Yes normal to inspection Back/Spine/Pelvis Cervical Spine: normal cervical lordosis Thoracic/Lumbar Spine: thoracic and lumbar spine normal to inspection Skin General skin exam: no rashes or lesions noted Neuro General: patient oriented x3, gait normal, tone normal and moves all extremities Extrem General: Yes normal to inspection and Yes capillary refill normal Office Procedures Cystoscopy Consent Discussed risk and benefit or proposed procedure with the patient. Information consent for procedure given to the patient. Discussed technical aspects, risks, benefits and alternatives in full. Addressed all of the patient's questions and concerns regarding the procedure. The patient demonstrated knowledge and understanding. They wish to proceed with this procedure. Preparation The patient was prepped in the usual manner. A ob/gyn doctor was present and in the room. Genitalia was prepped with betadine solution in a sterile manner. Lidocaine Jelly 2% was placed into the urethra and 16Fr flexible Olympus cystoscope was inserted into the meatus after adequate lubrication. Procedure Cystoscopy performed using a disposable Urovue digital 16 Frisian cystoscope. Meatus circumcised Urethra anterior and posterior urethra normal Prostatic Urethra prominent median lobe Bladder examination with retroflexion of cystoscope Bladder Orifices normal shape and position Bladder Capacity median Trabeculations grade 2 Cellule Formation - Diverticulum Formation - Mucosal Erythema - Bladder Tumor - [id number] DISPOSABLE SCOPE URO-G FLEXIBLE SCOPE Procedure code (CPT) selection complete Office Meds lidocaine HCl 2 % mucosal jelly in applicator Performing Provider: Nathanael Villagomez MD [facility]forming [facility] Administered by: Precious Pandey RN on 01/27/25 15:13 Dose Route Admin Location Dispensed Lot Number Expiration Date [employer] 10 mL intra-urethral 10 mL nitrofurantoin monohydrate/macrocrystals 100 mg capsule Performing Provider: Nathanael Villagomez MD Performing Location[facility] Administered by: Precious Pandey RN on 01/27/25 15:13 Dose Route Admin Location Dispensed Lot Number Expiration Date [employer] 100 mg PO 1 cap Results AMB Urinalysis, Automated UA Leukoctes 0 Alan/uL Last Edit by CELESTINE Singh on 01/27/25 14:38 UA Nitrite Negative Last Edit by CELESTINE Singh on 01/27/25 14:38 UA Urobilinogen 3.5 mg/dL Last Edit by CELESTINE Singh on 01/27/25 14:3 8 UA Protein 15 mg/dL Last Edit by CELESTINE Singh on 01/27/25 14:38 UA pH 5.5 Last Edit by CELESTINE Singh on 01/27/25 14:38 UA Blood 0 Camacho/uL Last Edit by CELESTINE Singh on 01/27/25 14:38 UA Specific [place] 1.020 Last Edit by CELESTINE Singh on 01/27/25 14: 38 UA Ketone Negative Last Edit by CELESTINE Singh on 01/27/25 14:38 UA Bilirubin 0 mg/dL Last Edit by CELESTINE Singh on 01/27/25 14:38 UA Glucose 0 mg/dL Last Edit by CELESTINE Singh on 01/27/25 14:38 Results Reviewed Results Reviewed: Laboratory Last Values Urine pH (Auto) 5.5 01/27/25 14:37 Specific [place] (Auto) 1.020 01/27/25 14:37 Urine Protein (Auto) 15 mg/dL 01/27/25 14:37 Glucose (UA)(Auto) 0 mg/dL 01/27/25 14:37 Urine Ketones (Auto) Negative 01/27/25 14:37 Urine Blood (Auto) 0 Camacho/uL 01/27/25 14:37 Urine Nitrite (Auto) Negative 01/27/25 14:37 Urine Bilirubin (Auto) 0 mg/dL 01/27/25 14:37 Urine Urobilinogen (Auto) 3.5 mg/dL 01/27/25 14:37 Leukocyte Esterase (Auto) 0 Alan/uL 01/27/25 14:37 Assessment & Plan Assessment & Plan (1) Nocturia more than twice per night: Code(s): R35.1 - Nocturia Category: Medical (2) BPH w urinary obs/LUTS: Code(s): N40.1 - Benign prostatic hyperplasia with lower urinary tract symptoms; N13.8 - Other obstructive and reflux uropathy Category: Medical Plan Four month follow-up PSA Orders: Orders AMB Cystoscopy Today N13.8 - Other obstructive and reflux uropathy, N40.1 - Benign prostatic hyperplasia with lower urinary tract symptoms, R35.1 - Nocturia, R39.12 - Poor urinary stream, R39.15 - Urgency of urination AMB Urinalysis Automated Today Z13.9 - Encounter for screening, unspecified Medications: New finasteride 5 mg PO DAILY 90 tabs 1RF 90 days N13.8 - Other obstructive and reflux uropathy, N40.1 - Benign prostatic hyperplasia with lower urinary tract symptoms, R33.9 - Retention of urine, unspecified, R97.20 - Elevated prostate specific antigen [PSA] Patient Instructions: This note is constructed using voice recognition software. While every effort has been made to ensure accuracy nuclear licensing engineer errors may have been included. Imaging studies, laboratory and physical exam results were discussed and reviewed in detail. No major barriers to patient understanding were identified. An opportunity to ask questions regarding the treatment plan was provided. All questions were answered. The patient expressed understanding and agreement with the above treatment plan. The patient is aware they should contact our office by phone for worsening of their current condition or the appearance of new urologic symptoms. Compliance is encouraged with any medications and followup testing that is ordered. It is a privilege to participate in the urologic care of your patient. If you have any questions or concerns regarding treatment for the above conditions, or other urologic issues, please do not hesitate to contact me. The office telephone contact is [phone]. Sincerely, Dr Nathanael Villagomez MD, [facility] - Urology Compassionate Specialist Care for the Genitourinary System Coding Level of Care Code Est Pt Level 4 (17917) Diagnoses Nocturia more than twice per night R35.1 BPH w urinary obs/LUTS N40.1; N13.8 CPT Codes Cystoscopy - CPT: [id number] ([id number])
--- OUTSIDE RECORDS SUMMARY | 2025-01-27 17:52 | XMS_ITS | Clinical Summary ---
Author Organization [facility] Address [address] [facility] [[email or web address] [address] [place] [address] Phone Care Team Providers Care Baling Machine Operator Name Role Phone Travon Plascencia MD Primary Care Provider [phone] Allergies No known active allergies Medications tamsulosin [...] Take 1,000 Units by mouth daily Active Gomer-3 1000 MG capsule Take by mouth daily [...] He is followed by a Urologist in [facility]. 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 Multiple [...] Visit [facility] [address] [place] [address] Nikhil Monique MD [address] [facility] [address] [place] [id number] Health Maintenance Due Date Last Done Comments Pneumococcal Vaccine: 65+ Years (1 of 2 - PCV) 1946 Influenza Vaccine (#1) 2024 2, 08/09/2011, 08/16/2010, Additional history exists Hepatitis B Vaccine Aged Out No longe r eligible based on patient's age to complete this topic Insurance MEDICARE [facility] MEDICARE [facility] Care Teams Baling Machine Operator Relationship Specialty Start Date End Date Travon Plascencia MD [facility] [address] [place] [address] [address]1 [place], [place] PCP - General Internal Medicine 09/14/21
--- OUTSIDE RECORDS SUMMARY | 2025-01-27 17:53 | XMS_ITS | Data Portability ---
Author Organization [place] [facility], Allergy Address [address] [place] [id number] Assessment Encounter Date Assessment Date Assessment LastModified [...] mcg (0.03 %) nasal spray 2023 024 [employer] [id number], [address] [facility], [place], [address], 06/25/2024 09:30:53 Patient TargetsNo targets recorded. Patient [...] Organization Details Recorded Time Deviated nasal septum 274987410 Active 2018 Deviated nasal septum; Note: Date Diagnosed: 09/02/2019 3:53 PM (J34.2) Not Available [facility] 4 02:18:47 Sensorine ural hearing loss of bilateral ears 520437073 Active 2019 Sensorineu ral hearing loss, bilateral; Note: Date Diagnosed: 12/22/2019 4:00 PM (H90.3) Not Available [facility] 4 02:18:49 Chronic sinusitis 09425387 Active 2018 Other chronic sinusitis; Note: Date Diagnosed: 07/22/2019 10:35 AM (J32.8) Not Available [facility] 4 02:18:16 Chronic rhinitis 36753870 Active 2020 Chronic rhinitis; Note: Date Diagnosed: 03/21/2021 11:30 AM (J31.0) Not Available [facility] 4 02:18:59 Follow-up visit Active 2018 Encounter for follow-up examinatio n after completed treatment for conditions other than malignant neoplasm; Note: Date Diagnosed: 09/05/2019 2:43 PM (Z09) Not Available [facility] 4 02:19:03 Obstructi ve sleep apnea syndrome 47318916 Active 2018 Obstructiv e sleep apnea (adult) (pediatric ); Note: Date Diagnosed: 07/22/2019 10:41 AM (G47.33) Not Available [facility] 4 02:18:46 Problem Notes None recorded. Procedures Surgical History Date Name Laterality Status Provider Name and Address Organization Details Recorded Time 4 JMSNasal/Sinus Endoscopy-PRIOR surgical cavities completed FRANCES SHAW MD [address] [place] [address], [phone], [place] - [facility] 06/25/2024 09:32:34 functional endoscopic sinus surgery completed FRANCES SHAW MD [address] [place] [address],[address], [address], [place] - [facility] 06/24/2024 21:47:45 Repair of nasal septum completed FRANCES SHAW MD [address] [place] [address],[address], [address], [place] - [facility] 06/24/2024 21:47:55 Imaging Results Imaging Date Name Status LastModified by [facility] Details LastModified Time 12/22/2019 imaging/diagno stic result [...] flaxseed oil 2018 active Medicati on ID: [id number] B rand Name: flaxseed oil Send Method: [...] mg tablet 03/21 completed Medicati on ID: [id number] D uration Value: 7 Brand Name: ciproflo [...] by mouth 2018 active Medicati on ID: [id number] D uration Value: 10 Prescri bed By [...] 1 vial 2018 active Medicati on ID: [id number] D uration Value: 30 Prescri bed By [...] mg tablet 2018 active Medicati on ID: [id number] B rand Name: Fadi Aspirin Send Method: [...] both nostrils 2018 active Medicati on ID: [id number] D uration Value: 120 Brand Name: flonase Send Method: E-Prescr ibed Sub s Allowed: subs OK Medic ationGen ericName : flonase Not Available Not Available Not Available betametha sone a small amount to affected area 2018 active Medicati on ID: [id number] D uration Value: 30 Brand Name: betameth asone Se nd Method: E-Prescr ibed Sub s Allowed: subs OK Speci al Instruct ion: apply to flaking ears Med icationG enericNa me: betameth asone Not Available Not Available Not Available Centrum Silver 2018 active Medicati on ID: [id number] B rand Name: centrum silver S end Method: E-Prescr ibed Sub s Allowed: subs OK Medic ationGen ericName : centrum silver Not Available Not Available Not Available Vitamin D3 2018 active Medicati on ID: [id number] B rand Name: vitamin d3 Send Method: E-Prescr ibed Sub s Allowed: subs OK Medic ationGen ericName : vitamin d3 Not Available Not Available Not Available Gaby Allergy 180 mg tablet 1 tablet by mouth 2018 active Medicati on ID: [id number] D uration Value: 30 Brand Name: Gaby Allergy Send Method: E-Prescr ibed Sub s Allowed: subs OK Medic ationGen ericName : [facility]ergy Not Available Not Available Not Available Aleve 220 mg capsule 2018 active Medicati on ID: [id number] B rand Name: Aleve Se nd Method: E-Prescr ibed Sub s Allowed: subs OK Medic ationGen ericName : Aleve Not Available Not Available Not Available Myrbetriq 50 mg tablet,ex tended release active Not Available Not Available Not Available Fish Oil 1,000 mg (120 mg-180 mg) capsule 2018 active Medicati on ID: [id number] B rand Name: Fish Oil Send Method: E-Prescr ibed Sub s Allowed: subs OK Medic ationGen ericName : Fish Oil Not Available Not Available Not Available Vitals Date Recorded Body height Body mass index (BMI) Body weight Provider Name and Address Organization Details Last Updated DateTime 06/25/2024 182.88 cm 30.5 kg/m2 220974.28 g Pan Sarah [place] - [facility] 06/25/2024 09:10:11 Social History None recorded. Functional Status None recorded. Mental Status None recorded. Family History Nothing Reported. Medical History No medical history recorded. Past Encounters Encounter ID Performer Location Encounter Start Date Encounter Closed Date Diagnosis/Indication Diagnosis SNOMED-CT Code Diagnosis ICD10 Code Diagnosis Note [id number] FRANCES ROJO MD [facility] [address] [address] 06/25/2024 08:57:55 06/25/2024 09:34:29 Chronic rhinitis 12459706 J31.0 Obstructiv e sleep apnea syndrome 61836350 G47.33 Sensorineu ral hearing loss of bilateral ears 769509360 H90.3 Health Concerns Section Related Observation LastModified by Organization Detai ls LastModified Time None Recorded Concern Status LastModified by Organization Details LastModified Time None Recorded Advance Directives Directive None Recorded Payers Encounter Date Sequence Insurance Name Policy Number Policy Rubio Covered Member ID Rubio Member ID Guarantor Name 06/25/2024 1 [place]ICARE [place]: [employer] Alex Prado [id number] Alex Prado 06/25/2024 2 [facility] [employer] PROGRAM (PPO) [id number] Alex Batsheva Johan [id number] Alex Prado Notes Date Note Type Note Provider Name and Address Organization Details Recorded Time 06/25/2024 text/html f/u chronic fungal sinusitis, [facility] and [facility]. He took a fall weekend and sustained non-displaced fx of nose. Nasal breathing good. Still needs Atrovent. Hx of right FESS 2018 FRANCES SHAW MD [address] [place] [address], [place], [address], [facility] - [facility] 06/25/2024 09:33:00
== END 2025-01-27 15:38 | disposition home or self-care (01) ==
LOC: HO.HUSH 14:18
PROVIDERS: PCP Internal Medicine; Visit Provider Urology
DX: R39.15 Urgency of urination (principal); N40.1 Benign prostatic hyperplasia with lower urinary tract symptoms; R35.1 Nocturia; R39.12 Poor urinary stream; N13.8 Other obstructive and reflux uropathy; Z13.9 Encounter for screening, unspecified
CPT/HCPCS: 52000; 99214

== ENCOUNTER → 2025-01-27 14:17 | Outpatient (BNVA) | payer MEDICARE, BC, SELFPAY | PROVIDERS: PCP Internal Medicine; Visit Provider Urology | DX: N40.1 Benign prostatic hyperplasia with lower urinary tract symptoms (principal); R35.1 Nocturia; N13.8 Other obstructive and reflux uropathy; R39.12 Poor urinary stream; Z87.442 Personal history of urinary calculi | CPT/HCPCS: 52000; 81003; 99212 ==

== ENCOUNTER 2025-05-20 09:15 | Outpatient (REF) | payer MEDICARE, BC, SELFPAY ==
--- OUTSIDE RECORDS SUMMARY | 2025-05-20 09:37 | XMS_ITS | Data Portability ---
Author Organization [place] [facility], Allergy Address [address] [address] Assessment Encounter Date Assessment Date Assessment LastModified [...] mcg (0.03 %) nasal spray 2023 024 [employer] [id number], [address] [facility], [place], [address], 06/25/2024 09:30:53 Patient TargetsNo targets recorded. Patient [...] Organization Details Recorded Time Deviated nasal septum 941499568 Active 2018 Deviated nasal septum; Note: Date Diagnosed: 09/02/2019 3:53 PM (J34.2) Not Available [facility] 4 02:18:47 Sensorine ural hearing loss of bilateral ears 892447898 Active 2019 Sensorineu ral hearing loss, bilateral; Note: Date Diagnosed: 12/22/2019 4:00 PM (H90.3) Not Available [facility] 4 02:18:49 Chronic sinusitis 41244589 Active 2018 Other chronic sinusitis; Note: Date Diagnosed: 07/22/2019 10:35 AM (J32.8) Not Available [facility] 4 02:18:16 Chronic rhinitis 95632535 Active 2020 Chronic rhinitis; Note: Date Diagnosed: 03/21/2021 11:30 AM (J31.0) Not Available [facility] 4 02:18:59 Follow-up visit Active 2018 Encounter for follow-up examinatio n after completed treatment for conditions other than malignant neoplasm; Note: Date Diagnosed: 09/05/2019 2:43 PM (Z09) Not Available [facility] 4 02:19:03 Obstructi ve sleep apnea syndrome 51344322 Active 2018 Obstructiv e sleep apnea (adult) (pediatric ); Note: Date Diagnosed: 07/22/2019 10:41 AM (G47.33) Not Available [facility] 4 02:18:46 Problem Notes None recorded. Procedures Surgical History Date Name Laterality Status Provider Name and Address Organization Details Recorded Time 4 JMSNasal/Sinus Endoscopy-PRIOR surgical cavities completed FRANCES SHAW MD [address] [place] [address], [phone], [facility] 06/25/2024 09:32:34 functional endoscopic sinus surgery completed FRANCES SHAW MD [address] [place] [address], [phone], [facility] 06/24/2024 21:47:45 Repair of nasal septum completed FRANCES SHAW MD [address] [place] [address],[address], [phone], [facility] 06/24/2024 21:47:55 Imaging Results None recorded. Procedure Notes None recorded. Medical Equipment None Reported. Medications Name Sig Start Date Stop Date Status Note LastModified by Organization Details LastModified Time flaxseed oil 2018 active Medicati on ID: [id number] B rand Name: flaxseed oil Send Method: [...] mg tablet 03/21 completed Medicati on ID: [id number] D uration Value: 7 Brand Name: ciproflo [...] by mouth 2018 active Medicati on ID: [id number] D uration Value: 10 Prescri bed By [...] 1 vial 2018 active Medicati on ID: [id number] D uration Value: 30 Prescri bed By [...] mg tablet 2018 active Medicati on ID: [id number] B rand Name: Fadi Aspirin Send Method: [...] both nostrils 2018 active Medicati on ID: [id number] D uration Value: 120 Brand Name: flonase Send Method: E-Prescr ibed Sub s Allowed: subs [place] Medic ationGen ericName : flonase Not Available Not Available Not Available betametha sone a small amount to affected area 2018 active Medicati on ID: [id number] D uration Value: 30 Brand Name: betameth asone Se nd Method: E-Prescr ibed Sub s Allowed: subs [place] Speci al Instruct ion: apply to flaking ears Med icationG enericNa me: betameth asone Not Available Not Available Not Available Centrum Silver 2018 active Medicati on ID: 646234 B rand Name: centrum silver S end Method: E-Prescr ibed Sub s Allowed: subs [place] Medic ationGen ericName : centrum silver Not Available Not Available Not Available Vitamin D3 2018 active Medicati on ID: 690469 B rand Name: vitamin d3 Send Method: E-Prescr ibed Sub s Allowed: subs [place] Medic ationGen ericName : vitamin d3 Not Available Not Available Not Available [facility] 180 mg tablet 1 tablet by mouth 2018 active Medicati on ID: [id number] D uration Value: 30 Brand Name: Gaby Allergy Send Method: E-Prescr ibed Sub s Allowed: subs [place] Medic ationGen ericName : [facility] Not Available Not Available Not Available Aleve 220 mg capsule 2018 active Medicati on ID: [id number] B rand Name: Aleve Se nd Method: E-Prescr ibed Sub s Allowed: subs [place] Medic ationGen ericName : Aleve Not Available Not Available Not Available Myrbetriq 50 mg tablet,ex tended release active Not Available Not Available Not Available Fish Oil 1,000 mg (120 mg-180 mg) capsule 2018 active Medicati on ID: [id number] B rand Name: Fish Oil Send Method: E-Prescr ibed Sub s Allowed: subs [place] Medic ationGen ericName : Fish Oil Not Available Not Available Not Available Vitals Date Recorded Body height Body mass index (BMI) Body weight Provider Name and Address Organization Details Last Updated DateTime 06/25/2024 182.88 cm 30.5 kg/m2 402658.28 g Pan Sarah [place] - [facility] 06/25/2024 09:10:11 Social History None recorded. Functional Status None recorded. Mental Status None recorded. Family History Nothing Reported. Medical History No medical history recorded. Past Encounters Encounter ID Performer Location Encounter Start Date Encounter Closed Date Diagnosis/Indication Diagnosis SNOMED-CT Code Diagnosis ICD10 Code Diagnosis Note [id number] FRANCES ROJO MD [facility] [address] [address] 06/25/2024 08:57:55 06/25/2024 09:34:29 Chronic rhinitis 41335054 J31.0 Obstructiv e sleep apnea syndrome 52909140 G47.33 Sensorineu ral hearing loss of bilateral ears 842013607 H90.3 Health Concerns Section Related Observation LastModified by Organization Detai ls LastModified Time None Recorded Concern Status LastModified by Organization Details LastModified Time None Recorded Advance Directives Directive None Recorded Payers Insurance Date Sequence Insurance Name Policy Number Policy Rubio Covered Member ID Rubio Member ID Guarantor Name 06/25/2024 1 [place] [employer] Alex Prado [id number] Alex Prado 06/25/2024 2 [place] 106 Alex Prado [id number] Alex Prado 06/25/2024 2 [place] 106 Alex Prado [id number] Alex Prado Notes Date Note Type Note Provider Name and Address Organization Details Recorded Time 06/25/2024 text/html f/u chronic fungal sinusitis, NAV and HL. He took a fall weekend and sustained non-displaced fx of nose. Nasal breathing good. Still needs Atrovent. Hx of right FESS 2018 FRANCES SHAW MD [address] [place] [address], [phone], [place] [facility] 06/25/2024 09:33:00
--- OUTSIDE RECORDS SUMMARY | 2025-05-20 09:37 | XMS_ITS | Clinical Summary ---
Author Organization [facility] Address [address] [facility] [address] [place] [address] Phone Care Team Providers Care Application Security Developer Name Role Phone Travon Plascencia MD Primary Care Provider [phone] Allergies No known active allergies Medications tamsulosin [...] Take 1,000 Units by mouth daily Active Telferner-3 1000 MG capsule Take by mouth daily [...] is followed by a Urologist in [facility]. 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 Multiple [...] [as it decreases urinary calcium excretion]. Immunizations Immunization Administration Dates Next Due Influenza (IM) Preservative [...] Visit [facility] [address] [place] [address] Nikhil Monique MD [address] [facility] [address] [place] [phone] Health Maintenance Due Date Last Done Comments Pneumococcal Vaccine: 50+ Years (1 of 2 - PCV) 1959 Influenza Vaccine (#1) 2025 2, 08/09/2011, 08/16/2010, Additional history exists Hepatitis B Vaccine Aged Out No longe r eligible based on patient's age to complete this topic Insurance Medicare [facility] Medicare [facility] Care Teams Application Security Developer Relationship Specialty Start Date End Date Travon Plascencia MD [facility] [address] [place] [address] [address] [place], [place] PCP - General Internal Medicine 09/14/21
[2025-05-20 10:44] LABS: Prostate Specific Antigen 2.05 ng/mL (<0.05-4.0)
== END 2025-05-20 09:16 | disposition home or self-care (01) ==
LOC: HO.LAB 09:15
PROVIDERS: PCP Internal Medicine; Visit Provider Urology
DX: Z12.5 Encounter for screening for malignant neoplasm of prostate (principal)
CPT/HCPCS: 36415; 84153

== ENCOUNTER 2025-06-03 13:56 | Outpatient (AMB) | payer MEDICARE, BC, SELFPAY ==
--- NOTE | 2025-06-03 14:02 | MHC.OFFVIS ---
Intake Visit Reasons: 4M PVR/PSA(PSA?) Intake Note: Patient is present for 4 MO follow up Urology Medication:TAMSULOSIN,MIRABEGON,FINASTERIDE Antibiotic Allergy:NONE Blood Thinner:ELIQUIS LAB DONE 05/20/2025: PSA 2.05 PVR: 33 MLS Surveillance Dual Rate Officer Required: No Accompanied by: Self / Same As Patient Allergies No Known Allergies (No Known Allergies*) Allergy (Verified 06/03/25 14:02) HPI Comments Details: Alex is a pleasant male. He is a patient of Dr. Plascencia. He is seen for the following urologic conditions - nephrolithiasis - lower urinary tract symptoms Follow-up from trial finasteride PSA fallen to 2.1 PVR 30 cc Improvement in stream Sleeping 4 hours till 1st voiding Cystoscopy shows enlarged prostate particularly median lobe Complex cyst left side 3 cm. Continue interval imaging Nephrolithiasis Longstanding Prior imaging evaluation raised question of renal lesion Here for follow-up after CT Imaging - renal ultrasound 11/25 multiple by renal renal cysts up to 3.5 cm, question of lesion on ultrasound left kidney - CT 12/26 multiple renal stone 3 mm cyst, multiple renal cysts, no evidence of complex cyst - CT 07/26 small renal stone, multiple renal cyst, small stones in bladder no evidence of hydronephrosis - 10/26 renal ultrasound. Multiple bilateral renal cysts up to 3 cm. 1 cm stone on right kidney. 3 cm left complex cyst. Continue with interval imaging Lower urinary tract symptoms Longstanding with weakness of stream and urinary urgency Partial response to alpha-froilan with combination of Myrbetriq for urgency JEANNIE 2+ prostate PSA 11/25 3.6, 11/26 3.0, 11/26 2.9, 11/28 3.7, 05/28 4.8, 11/29 3.7, 05/29 2.1 PFSH Medical History Recurrent oral herpes simplex History of Mohs micrographic surgery for skin cancer BPH (benign prostatic hyperplasia) NAV on CPAP Arthritis Depression HTN (hypertension) CKD (chronic kidney disease) GERD (gastroesophageal reflux disease) Elevated cholesterol Renal mass Nocturia Renal stones Surgical History History of right inguinal hernia repair Social History Patient Tobacco Use Status: Never used Tobacco Review of Systems Const Denies chills and Denies fever(s) Card Reports no additional complaints and Denies syncope Resp Denies cough GI Denies abdominal pain and Denies heartburn Reports as per HPI and Denies change in libido Neuro Denies syncope Psych Denies change in libido Endo Denies change in libido Physical Exam Const General: cooperative, healthy appearing, comfortable and no acute distress Orientation/consciousness: patient oriented x3 HEENT Face and sinus: Yes normal facial exam Mouth: moist mucous membranes Neck Neck: Yes normal visual inspection, Yes full ROM and Yes trachea midline Chest Chest palpation & inspection: normal inspection of the chest Resp Effort & Inspection: normal respiratory effort, able to speak in complete sentences and no respiratory distress GI Inspection: Yes normal to inspection Back/Spine/Pelvis Cervical Spine: normal cervical lordosis Thoracic/Lumbar Spine: thoracic and lumbar spine normal to inspection Skin General skin exam: no rashes or lesions noted Neuro General: patient oriented x3, gait normal, tone normal and moves all extremities Extrem General: Yes normal to inspection and Yes capillary refill normal Assessment & Plan Assessment & Plan (1) BPH w urinary obs/LUTS: Code(s): N40.1 - Benign prostatic hyperplasia with lower urinary tract symptoms; N13.8 - Other obstructive and reflux uropathy Category: Medical (2) Nocturia more than twice per night: Code(s): R35.1 - Nocturia Category: Medical Plan Six-month follow-up repeat renal imaging Orders: Orders Prostate Specific Antigen 05/20/25 Z12.5 - Encounter for screening for malignant neoplasm of prostate US renal BI 6 Months N28.1 - Cyst of kidney, acquired Medications: Changed From mirabegron ER (Myrbetriq) 50 mg PO DAILY 90 tabs 0RF N32.81 - Overactive bladder, R39.15 - Urgency of urination To mirabegron ER (Myrbetriq) 50 mg PO DAILY 90 tabs 1RF 90 days N32.81 - Overactive bladder, R39.15 - Urgency of urination Refilled finasteride 5 mg PO DAILY 90 tabs 1RF 90 days N13.8 - Other obstructive and reflux uropathy, N40.1 - Benign prostatic hyperplasia with lower urinary tract symptoms, R33.9 - Retention of urine, unspecified, R97.20 - Elevated prostate specific antigen [PSA] Patient Instructions: This note is constructed using voice recognition software. While every effort has been made to ensure accuracy maintenance equipment operator errors may have been included. Imaging studies, laboratory and physical exam results were discussed and reviewed in detail. No major barriers to patient understanding were identified. An opportunity to ask questions regarding the treatment plan was provided. All questions were answered. The patient expressed understanding and agreement with the above treatment plan. The patient is aware they should contact our office by phone for worsening of their current condition or the appearance of new urologic symptoms. Compliance is encouraged with any medications and followup testing that is ordered. It is a privilege to participate in the urologic care of your patient. If you have any questions or concerns regarding treatment for the above conditions, or other urologic issues, please do not hesitate to contact me. The office telephone contact is [phone]. Sincerely, Dr Nathanael Villagomez MD, [facility] - Urology Compassionate Specialist Care for the Genitourinary System Coding Level of Care Code Est Pt Level 3 (47994) Complex EM visit Add On G2211 Diagnoses BPH w urinary obs/LUTS N40.1; N13.8 Nocturia more than twice per night R35.1
--- OUTSIDE RECORDS SUMMARY | 2025-06-03 14:37 | XMS_ITS | Encounter Summary ---
Author Organization [facility] Address [address] [place] [address] Phone Care Team Providers Care Hydraulic Jack Adjuster Name Role Phone Nikhil Monique MD Unavailable [phone] Nathanael Villagomez MD Unavailable Stefany Plascencia MD Primary Care Provide r Encounter Details Date Type Department Care Team (Late st Contact Info) Description 05/26/[address] [facility] Holter Lab [address] [facility], 5th Floor, [address] [place] [address] Social History Tobacco Use Types Packs/Day Years Used Date Smoking Tobacco: Never Smokeless Tobacco: Never Education Answer Date Recorded Are you interested in more education? Not on fredy e 03/01/2023 Are you concerned about learning? Not on file 03/01/2023 No 03/01/2023 No 03/01/2023 Digital Access Answer Date Recorded No 04/02/2023 No 04/02/2023 Reliable internet access at home? Not on file 04/02/2023 Device with a working camera? Not on file Intimate Partner Violence Answer Date R ecorded Are you denied basic needs s uch as food, clothing, or medical care? No 05/04/2023 In the past 12 months have y ou been in a relationship with a person who hurts, threatens, or tries to control you? No 05/04/2023 Are you denied basic needs s uch as food, clothing, or medical care? No 05/04/2023 In the past 12 months have y ou been in a relationship with a person who hurts, threatens, or tries to control you? No 05/04/2023 Sex and Gender Information Value Date Recorded Sex Assigned at Not on file Legal Sex Male 7:50 PM EST Gender Identity Not on file Sexual Orientation Not on file documented as of this encounter Plan of Treatment Upcoming Encounters Date Type Department Care Team (Late st Contact Info) Description 04/07/2025 Procedure Pass [facility] Cardiology [address] [facility], [address] [place] [address] 06/26/2025 4:00 PM EDT Appointment [facility] Card[facility] [address], [address] [place] [address] Phoenix Jolley MD, MPH [address] [address] [email or web address] 07/07/2025 3:30 PM EDT Office Visit [facility] Cardiac Arrhythmia Service [address] [facility], 5th [address], [address] [place] [address] Phoenix Jolley MD, MPH [address] [address] [email or web address] documented as of this encounter Visit Diagnoses Not on filedocumented in this encounter Care Teams Hydraulic Jack Adjuster Relationship Specialty Start Date End Date Stefany Plascencia MD [address] [place] [address] 1 [place] [address] PCP - General Internal Medicine 08/31/22 Nikhil Monique MD [address] [facility] [employer] [address] [address] [email or web address] [facility] 08/31/22 Nathanael Villagomez MD [address] [place] [address] Urology 08/31/22 documented as of this encounter Additional Source Comments The information contained in this document represents components of the legal health record. It is not the complete legal health record.[facility]
--- OUTSIDE RECORDS SUMMARY | 2025-06-03 14:37 | XMS_ITS | Clinical Summary ---
Author Organization [facility] Address 100 [facility] [address] [place] [address] Phone Care Team Providers Care Senior Account Clerk Name Role Phone Travon Plascencia MD Primary Care Provider [phone] Allergies No known active allergies Medications tamsulosin [...] Take 1,000 Units by mouth daily Active Monte[place]-3 1000 MG capsule Take by mouth daily [...] He is followed by a Urologist in [facility]. 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 [...] Upcoming Encounters Date Type Department Care Team (Latest Contact Info) Description 06/27/2025 Orders Only [facility] [address] [place] [address] Nikhil Monique MD [address] [address] Stage 3a chronic kidney disease (HCC); Renal stone; Renal osteodystrophy 08/03/2025 1:00 PM EDT Office Visit [facility] [address] [place] [address] Nikhil Monique MD [address] [phone] Health Maintenance Due Date Last Done Comments Pneumococcal Vaccine: 50+ Years (1 of 2 - PCV) 1959 Influenza Vaccine (#1) 2025 2, 08/09/2011, 08/16/2010, Additional history exists Hepatitis B Vaccine Aged Out No longe r eligible based on patient's age to complete this topic Insurance Medicare [facility] Medicare [facility] Care Teams Senior Account Clerk Relationship Specialty Start Date End Date Travon Plascencia MD [facility] [address] [place] [address] [address]1 [place], [place] PCP - General Internal Medicine 09/14/21
== END 2025-06-03 14:53 | disposition home or self-care (01) ==
LOC: HO.HUSH 13:57
PROVIDERS: PCP Internal Medicine; Visit Provider Urology
DX: N40.1 Benign prostatic hyperplasia with lower urinary tract symptoms (principal); N13.8 Other obstructive and reflux uropathy; R35.1 Nocturia; N20.0 Calculus of kidney
CPT/HCPCS: 99213; G2211

== ENCOUNTER → 2025-06-03 13:56 | Outpatient (BNVA) | payer MEDICARE, BC, SELFPAY | PROVIDERS: PCP Internal Medicine; Visit Provider Urology | DX: N40.1 Benign prostatic hyperplasia with lower urinary tract symptoms (principal); N13.8 Other obstructive and reflux uropathy; R35.1 Nocturia; N20.0 Calculus of kidney; N28.1 Cyst of kidney, acquired; Z12.5 Encounter for screening for malignant neoplasm of prostate; Z79.01 Long term (current) use of anticoagulants; Z79.899 Other long term (current) drug therapy | CPT/HCPCS: 51798; 81003; 99212 ==

== ENCOUNTER 2025-06-29 11:14 | Outpatient (REF) | payer MEDICARE, BC, SELFPAY ==
--- OUTSIDE RECORDS SUMMARY | 2025-06-23 23:01 | XMS_ITS | Continuity of Care Document ---
Author Organization [facility] ter Address [address] [place] [address]- Care Team Providers Care Transcriber Name Role Phone Temo ROSALES, Stefany Posada Primary Care Physician [id number] Date(s): 06/23/25 - 06/23/[address] [address]- Encounter Diagnosis Bradycardia on ECG(Final) - 06/23/25 Discharge Disposition: A-D/C Home Attending Physician: Lane Carranza MD Admitting Physician: Lane Carranza MD Referring Physician: Not on Staff, Referring MD Encounter Type: Disch ES Allergies, Adverse Reactions, Alerts No Known Medication Allergies Immunizations Given and Recorded Vaccine Date Status Refusal Reason tetanus/diphtheria/pertussis, acel(Tdap) 03/28/24 Given Medications Aleve 220 mg oral capsule 2 capsule = 440 mg, By Mouth, Every 12 hours, 0 Refills, Maintenance, 09/04/18 1:43:56 PM EDT, Capsule Start Date: 09/04/18 Status: Ordered Repeat number: 1 apixaban Starter Pack 5 mg oral tablet 2 tablet = 10 mg, By Mouth, 2 times a day, followed by 1 tablet by mouth twice daily for 23 days, #74 tablet, 0 Refills, Maintenance, 01/09/25 1:10:00 PM EST, [facility], Partial fill upon patient request if the prescription is for a schedule II opioid drug., 183, cm, 01/09/25 12:53:00 EST, Height, 102.3, kg, 01/09/25 12:53:00 EST, Dry Weight Start Date: 01/09/25 Stop Date: 01/16/25 Status: Ordered Quantity: 74.0 Unit: tablet Repeat number: 1 atorvastatin 20 mg oral tablet 1 tablet = 20 mg, By Mouth, Daily in AM, 0 Refills, Maintenance, 08/27/19 8:39:09 AM EDT Start Date: 08/27/19 Status: Ordered Repeat number: 1 Fadi Aspirin 325 mg oral tablet 1 tablet = 325 mg, By Mouth, Daily, # 30 tablet, 0 Refills, Maintenance, 09/04/18 1:40:17 PM EDT, Tablet Start Date: 09/04/18 Status: Ordered Quantity: 30.0 Unit: tablet Repeat number: 1 Betamethasone Topically, Daily in AM, dry skin areas, 0 Refills, Maintenance, 08/27/19 8:39:50 AM EDT Start Date: 08/27/19 Status: Ordered Repeat number: 1 Centrum Silver By Mouth, Daily, 0 Refills, Maintenance, 09/04/18 1:39:42 PM EDT Start Date: 09/04/18 Status: Ordered Repeat number: 1 Citracal 250 mg + D 1 tablet, By Mouth, Daily in AM, 0 Refills, Maintenance, 09/04/18 1:41:49 PM EDT Start Date: 09/04/18 Status: Ordered Repeat number: 1 Compression Stockings See Instructions, # 1 kit, Maintenance, surgical, knee length 20-30 mm Hg, 01/09/25 1:10:00 PM EST, Supply, 183, cm, 01/09/25 12:53:00 EST, Height, 102.3, kg, 01/09/25 12:53:00 EST, Dry Weight Start Date: 01/09/25 Status: Ordered Quantity: 1.0 Unit: kit Repeat number: 1 FIBER GUMMIES WITH VIT D3 FIBER GUMMIES WITH VIT D3, See Instructions, Refills 0, Maintenance, 500IU OF VIT D3, 09/04/18 1:44:36 PM EDT, Compound Start Date: 09/04/18 Status: Ordered Repeat number: 1 finasteride 5 mg oral tablet TAKE 1 TABLET DAILY Start Date: 06/23/25 Status: Ordered Repeat number: 1 Fish Oil 1000 mg oral capsule 1 capsule = 1,000 mg, By Mouth, Daily, 0 Refills, Maintenance, 09/04/18 1:39:52 PM EDT, Capsule Start Date: 09/04/18 Status: Ordered Repeat number: 1 Flax Seed Oil Daily in AM, 0 Refills, Maintenance, 09/04/18 1:42:39 PM EDT Start Date: 09/04/18 Status: Ordered Repeat number: 1 Flonase Daily, PRN Other, 0 Refills, Maintenance, 08/27/19 8:41:08 AM EDT Start Date: 08/27/19 Status: Ordered Repeat number: 1 Glucosamine Chondroitin 1 capsule, By Mouth, Daily, 0 Refills, Maintenance, 09/04/18 1:42:57 PM EDT Start Date: 09/04/18 Status: Ordered Repeat number: 1 Icaps AREDS By Mouth, Daily, 0 Refills, Maintenance, 09/04/18 1:43:44 PM EDT Start Date: 09/04/18 Status: Ordered Repeat number: 1 Ipratropium Refills 0, Maintenance, 01/11/24 12:37:00 PM EST Start Date: 01/11/24 Status: Ordered Repeat number: 1 lansoprazole 30 mg oral enteric coated capsule 1 capsule = 30 mg, By Mouth, Daily, # 30 capsule, 0 Refills, Maintenance, 09/04/18 1:38:33 PM EDT, EC Capsule Start Date: 09/04/18 Status: Ordered Quantity: 30.0 Unit: capsule Repeat number: 1 Lomotil 0.025 mg-2.5 mg oral tablet 2, tablet, By Mouth, 4 times a day, Refills 0, Maintenance, 01/11/24 12:40:00 PM EST, Partial fill upon patient request if the prescription is for a schedule II opioid drug. Start Date: 01/11/24 Status: Ordered Repeat number: 1 Myrbetriq = 50 mg, By Mouth, Daily, 0 Refills, Maintenance, 12/27/18 1:49:33 PM EST Start Date: 12/27/18 Status: Ordered Repeat number: 1 Myrbetriq 50 mg oral tablet, extended release 90 tablet, 0 Refill(s), 0 Refills, 06/24/24 1:55:00 PM EDT, Partial fill upon patient request if theprescription is for a schedule II opioid drug. Start Date: 06/24/24 Status: Ordered Repeat number: 1 olmesartan 40 mg oral tablet 1 tablet = 40 mg, By Mouth, Daily, # 30 tablet, 0 Refills, Maintenance, 09/04/18 1:38:24 PM EDT, Tablet Start Date: 09/04/18 Status: Ordered Quantity: 30.0 Unit: tablet Repeat number: 1 tamsulosin 0.4 mg oral capsule 0.4 mg, 1, capsule, By Mouth, Daily, # 30 capsule, Refills 0, Maintenance, 09/04/18 1:37:36 PM EDT Start Date: 09/04/18 Status: Ordered Quantity: 30.0 Unit: capsule Repeat number: 1 valACYclovir 500 mg oral tablet 500 mg, 1, tablet, By Mouth, Daily, sunday, Refills 0, Maintenance, 09/04/18 1:38:03 PM EDT Start Date: 09/04/18 Status: Ordered Repeat number: 1 Vitamin D3 1000 intl units oral capsule 1 capsule = 1,000 International_Units, By Mouth, Daily, # 75 capsule, 0 Refills, Maintenance, 09/04/18 1:40:33 PM EDT, Capsule Start Date: 09/04/18 Status: Ordered Quantity: 75.0 Unit: capsule Repeat number: 1 Problem List Condition Confirmation Course Effective Dates Status Health St atus Informant Bradycardia Confirmed Active 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 Obstructive sleep apnea Confirmed Active Treatment-emergent central sleep apnea Confirmed Active Results Radiology Reports * Exam Date Time Procedure Performing Provider Status 06/23/25 4:13 PM Chest 2 Views Frontal and Lat Auth (Verified) Notes: (Chest 2 Views Frontal and Lat) Reason For Exam: Chest Pain;Other: RESULT: Chest 2 Views Frontal and Lat Chest 2 Views Frontal and Lat Hx of Present Illness: pt was at regular check up appt for his sleep apnea, found to have a heart rate in the 30's, currently not symptomatic, has no complaints at this time, sent in for eval; Reason: Other:; Chest Pain; Clinical Question(s): Other: COMPARISON: 2 priors with the most recent dated 03/21/2019. FINDINGS: LINES AND TUBES: None. LUNGS AND PLEURA: Clear lungs. Normal pulmonary vascularity. No pleural effusion. No pneumothorax. HEART, MEDIASTINUM AND CHRISTINE: Heart is normal in size. Normal mediastinal and hilar contour. BONES AND SOFT TISSUES: No acute abnormality. Moderate S-shaped scoliosis thoracolumbar spine essentially unchanged. [id number] multilevel degenerative change mid thoracic spine IMPRESSION: No acute cardiopulmonary disease is seen. WSN: [id number] Ordering Physician: Candy Lee Dictated By: Monster Perea MD, V Dictated Date/Time: 06/23/25 4:26 pm Reviewed By: Monster Perea MD, V Signed By: Monster Perea MD, V Signed Date/Time: 06/23/25 4:26 pm Transcribed By: CSSandi Transcribed Date/Time: 06/23/25 4:24 pm Social History Social History Type Response Smoking Status Never smoker entered on: 09/04/18 Sex Sex Representation Male (finding) EKG study * Event Display: ECG 12-Lead Authored Date: Please click on pdf link to open report * Event Display: ECG 12-Lead Authored Date: Ventricular Rate: 78 BPM Atrial Rate: 78 BPM P-R Interval: 228 ms QRS Duration: 104 ms Q-T Interval: 354 ms QTC Calculation(Bazett): 403 ms P [place]: 40 degrees R [place]: 37 degrees T [place]: 49 degrees Sinus rhythm with 1st degree A-V block with frequent Premature ventricular complexes Otherwise normal ECG When compared with ECG of 26-Sep-2022 09:38, Fusion complexes are no longer Present Premature ventricular complexes are now Present Confirmed by MICHELLE BEAUCHAMP MD ([id number]) on 06/23/2025 4:33:03 PM [place]: MICHELLE BEAUCHAMP MD Note * Anthony Pelayo MD: PERFORM, SIGN, VERIFY Event Display: Patient Education Handout Authored Date: [id number] * Anthony Pelayo MD: PERFORM Event Display: Patient Education Leaflets Authored Date: [id number] Bradycardia ?? [id number] Bradycardia A slow heart rate is less than 60 beats a minute. That is called bradycardia. Bradycardia can be normal. Or it can be caused by medicines. Or it can be a sign of a disease. The slow heart rate may not be constant. It can come and go. It's a concern when it is very low, or when you have symptoms. Symptoms Symptoms of bradycardia are: ??? Dizziness or feeling lightheaded. ??? Weakness. ??? Trouble breathing. ??? Fainting. ??? Sleepiness. ??? More trouble exercising than normal because of tiredness (fatigue). ??? Confusion or trouble concentrating. ?? Causes Bradycardia can have many causes. Some can be linked to your heart. But some may be linked to otherthings. Nonheart-related causes: ??? Being older. ??? A side effect of certain medicines. These include beta- blockers, calcium channel blockers, digitalis, clonidine, lithium, and medicines to treat arrhythmias, such as amiodarone. ??? Health conditions, like low thyroid (hypothyroidism) and electrolyte disorder. Other examples are??low body temperature (hypothermia) and sleep apnea. ??? Athletes, especially long- distance runners, may have a slow heart rate. This can be normal. ??? Brain injury, such as stroke or bleeding inside the brain. Heart-related causes: ??? Coronary artery disease. This includes angina or past heart attack (acute myocardial infarction). ??? Heart valve disease. ??? Heart muscle disease (cardiomyopathy). ??? Congestive heart failure.??? Sick sinus syndrome. This is when your heart's natural pacemaker is no longer working correctly. ??? Heart block. This is when your heart's natural electrical pathways no longer work correctly. ??? Diseases that enter the heart, such as sarcoid. ??? Heart infections. Sometimes the cause for the arrhythmia can't be found. Bradycardia that causes symptoms is sometimes reversible. When more severe bradycardia continues, you may need a pacemaker. Bradycardia may not cause symptoms. In this case, your health care providermay decide to watch it over time. ?? Home care You can care for yourself at home: ??? Go back to your normal activities when you are feeling back to normal. ??? If you have any of the symptoms of bradycardia when you exert yourself, stop. Don't exert yourself. Wait until you have seen your health care provider for an assessment. ??? Work with your provider on any lifestyle changes you need. These might mean changing your diet, stopping smoking if you are a smoker, and starting an exercise program. ?? Follow-up care Follow up with your health care provider as advised. ?? Call 911 Call 911 right away if: ??? You have chest pain. ??? You have chest pain that spreads to the shoulder, arm, neck, or back. ??? You have trouble breathing. ??? You have a slow heart rate with dizziness or lightheadedness. ??? You fainted or lost consciousness. ?? When to get medical care Contact your health care provider if: ??? You have occasional weakness. ??? You feel dizzy or lightheaded. ??? You have abnormal trouble exercising. ?? Last Reviewed Date: 2024 00:00:00 ?? [id number] [employer]. All rights reserved. This information is not intended as a substitute for professional medical care. Always follow your healthcare professional's instructions. ?? Patient Care team information Care Team Personnel Name: Temo ROSALES, Stefany Posada Position: [facility] Physician - Primary Care Member Role: PCP Address: [address] [place], [place] [address] Telecom: Name: Octavio Francisco RN Position: [facility] RN Member Role: Primary Care Nurse Care Team Related Persons Name: MIRELA MARSH Insurance Providers Guarantor name: RENATE MAXIMO Locu [facility] Information #: 1 Payer: MEDICARE B Payer Identifier: Member Number: [id number] Group Number: Subscriber Identifier: [id number] Relationship to Subscriber: self Coverage Type: NA Coverage Verification Date: NA Telecom: Address: Health [facility] Information #: 2 Payer: [facility] Payer Identifier: Member Number: [id number] Group Number: [id number] Subscriber Identifier: [id number] Relationship to Subscriber: self Coverage Type: Medicare Other Coverage Verification Date: Telecom: Address:
[2025-06-29 11:38] LABS: MANUAL DIFF FLAG NO
[2025-06-29 12:18] LABS: Hematocrit 40.6 % (42.0-52.0); Hemoglobin 13.2 g/dl (14.0-18.0); Imm Gran Abs Auto 0.01 X10*3/uL (0.00-0.03); Imm Gran Pct Auto 0.2 % (0.0-0.4); Lymphocytes Absolute Auto 1.4 X10*3/uL (1.2-4.9); Mean Corpuscular HGB Conc 32.5 g/dl (31.0-36.0); Mean Corpuscular Hemoglobin 31.1 pg (27.0-33.0); Mean Corpuscular Volume 95.5 fL (80.0-98.0); NRBC Abs Auto 0.000 X10*3/uL (0.0-0.012); NRBC Pct Auto 0.0 /100WBC (0.0-0.2); Platelet Count 175 X10*3/uL (160-400); Red Blood Count 4.25 X10*6/uL (4.60-5.80); White Blood Count 5.3 X10*3/uL (4.8-10.8)
[2025-06-29 12:38] LABS: Appearance Urine Clear; Glucose Urine UA Negative (Negative); PH 7.0 (5.0-9.0); Specific Gravity - Urine 1.010 (1.005-1.025); UMIC TRIGGER UA YES
--- OUTSIDE RECORDS SUMMARY | 2025-06-29 12:39 | XMS_ITS | Encounter Summary ---
Author Organization [facility] Address [address] [place] [address] Phone Care Team Providers Care News Commentator Name Role Phone Nikhil Monique MD Unavailable Nathanael Villagomez MD Unavailable Stefany Plascencia MD Primary Care Provide r Encounter Details Date Type Department Care Team (Late st Contact Info) Description 05/26/2024 Procedure Pass [facility] [address], [address] [place] [address] Social History Tobacco Use Types Packs/Day Years [...] Care Team (Late st Contact Info) Description 07/07/2025 3:30 PM EDT Office Visit [facility] Cardiac Arrhythmia Service [address], [address] [place] [address] Phoenix Jolley MD, MPH [address] [address] [email or web address] documented as of this encounter Visit Diagnoses Not on filedocumented in this encounter Care Teams News Commentator Relationship Specialty Start Date End Date Stefany Plascencia MD [address] [place] [address] [address] [place] [address] PCP - General Internal Medicine 08/31/22 Nikhil Monique MD [address] [address] [email or web address] Case Manager Nephrology 08/31/22 Nathanael Villagomez MD [address] [address] Urology 08/31/22 documented as of this encounter Additional Source Comments The information contained in this document represents components of the legal health record. It is not the complete legal health record.[facility]
--- OUTSIDE RECORDS SUMMARY | 2025-06-29 12:39 | XMS_ITS | Clinical Summary ---
Author Organization [facility] Address [address] [facility] [address] [place] [address] Phone Care Team Providers Care Pattern Maker Programer Name Role Phone Travon Plascencia MD Primary Care Provider [phone] Allergies No known active allergies Medications tamsulosin [...] Take 1,000 Units by mouth daily Active [place]-3 1000 MG capsule Take by mouth daily [...] He is followed by a Urologist in [facility]. 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 [...] considered [as it decreases urinary calcium excretion]. Encounters Date Type Department Care Team Description 06/27/2025 Orders Only [facility] [address] [place], [place] [address] Nikhil Monique MD Stage 3a chronic kidney disease (HCC); Renal stone; Renal osteodystrophy from Last 3 Months Immunizations Immunization Administration Dates Next Due Influenza [...] Visit [facility] [address] [place] [address] Nikhil Monique MD [address] [facility] [address] [place] [address] Health Maintenance Due Date Last Done Comments Pneumococcal Vaccine: 50+ Years (1 of 2 - PCV) 1959 Influenza Vaccine (#1) 2025 2, 08/09/2011, 08/16/2010, Additional history exists Hepatitis B Vaccine Aged Out No longe r eligible based on patient's age to complete this topic Procedures Procedure Name Priority Date/Time Associated Diagnosis Comments URINALYSIS WITH MICROSCOPIC Routine 06/29/2025 12:15 PM EDT Stage 3a chronic kidney disease (HCC) Renal stone Renal osteodystrophy CBC AND DIFFERENTIAL Routine 06/29/2025 11:37 AM EDT from Last 3 Months Results * (ABNORMAL) CBC and Differential (06/29/2025 11:37 AM EDT) WBC 5.3 4.8 - 10.8 X10*3/uL See order comments RBC 4.25(L) 4.60 - 5.80 X10*6/uL See order comments Hgb 13.2(L) 14.0 - 18.0 g/dl See order comments Hematocrit 40.6(L) 42.0 - 52.0 % See order comments MCV 95.5 80.0 - 98.0 fL See order comments MCH 31.1 27.0 - 33.0 pg See order comments MCHC 32.5 31.0 - 36.0 g/dl See order comments RDW 13.2 11.0 - 16.0 % See order comments Platelets 175 160 - 400 X10*3/uL See order comments MPV 9.9 9.4 - 12.4 fL See order comments Neutrophils % Auto 54.3 45 - 73 % See order comments Immature Granulocytes 0.2 0.0 - 0.4 % See order comments Lymphocytes Relative 26.8 20 - 40 % See order comments Monocytes 14.9(H) 2 - 11 % See order comments Eosinophils Relative 3.4 0 - 4 % See order comments Basophils Relative 0.4 0 - 2 % See order comments nRBC Count 0.0 0.0 - 0.2 /100WBC See order comments Neutrophils Absolute 2.9 2.0 - 8.3 x10*3/uL See order comments Immature Grans (Absolute) 0.01 0.00 - 0.03 X10*3/uL See order comments Lymphocytes Absolute 1.4 1.2 - 4.9 X10*3/uL See order comments Monocytes Absolute 0.8 0.1 - 1.2 X10*3/uL See order comments Eosinophils Absolute 0.2 0.0 - 0.4 X10*3/uL See order comments Basophils Absolute 0.0 0.0 - 0.2 X10*3/uL See order comments NRBC Absolute 0.000 0.0 - 0.012 X10*3/uL See order comments 06/29/2025 11:3 7 AM EDT 06/29/2025 11:37 AM EDT us Nikhil Monique MD LAB BLOOD ORDERABLES Final Re sult [facility] See order comments [place] [address] from Last 3 Months Insurance Medicare [facility] Medicare [facility] Care Teams Pattern Maker Programer Relationship Specialty Start Date End Date Travon Plascencia MD [facility] [address] [place] [address] PCP - General Internal Medicine 09/14/21
[2025-06-29 12:47] LABS: Parathyroid Hormone Intact 72.8 pg/mL (8.7-77.1)
[2025-06-29 12:51] LABS: Albumin Level 3.9 g/dL (3.5-5.0); Anion Gap 11 (12-20); Blood Urea Nitrogen 19 mg/dL (9-16); Calcium 9.3 mg/dL (8.4-10.2); Carbon Dioxide 26 mmol/L (22-29); Chloride 109 mmol/L (96-108); Estimated Glomerular Filt Rate 51; Magnesium 2.0 mg/dL (1.6-2.6); Potassium 4.9 mmol/L (3.3-5.1); Sodium 141 mmol/L (135-145)
[2025-06-29 12:53] LABS: Microalbum/Creatinine Ratio Ur 40.8 ug/mg cr (<30); Total Protein Urine Random < 7 mg/dL (<12)
== END 2025-06-29 11:15 | disposition home or self-care (01) ==
LOC: HO.LAB 11:14
PROVIDERS: PCP Internal Medicine; Visit Provider Internal Medicine Nephrology
DX: N18.31 Chronic kidney disease, stage 3a (principal); N25.0 Renal osteodystrophy; N20.0 Calculus of kidney
CPT/HCPCS: 36415; 80051; 81001; 82040; 82043; 82306; 82310; 82565; 82570; 83735; 83970; 84100; 84156; 84520; 85025

== ENCOUNTER 2025-11-03 09:13 | Outpatient (REF) | payer MEDICARE, BC, SELFPAY ==
--- OUTSIDE RECORDS SUMMARY | 2025-11-03 11:38 | XMS_ITS | Clinical Summary ---
Author Organization [facility] Address [address] [facility] [address] [place] [address] Phone Care Team Providers Care Gasoline Dragline Operator Name Role Phone iNkhil Monique MD Unavailable Nathanael Villagomez MD Unavailable Stefany Plascencia MD Primary Care Provide r Allergies No known active allergies Medications lansoprazole (PREVACID) 30 MG capsule Take 30 mg by mouth daily. Active olmesartan (BENICAR) 40 mg tablet Take 40 mg by mouth daily. Active atorvastatin (LIPITOR) 20 MG tablet Take 20 mg by mouth daily. Active valACYclovir (VALTREX) 500 MG tablet Take 500 mg by mouth as needed. 3x a week Active tamsulosin (FLOMAX) 0.4 mg Cp24 Take 0.4 mg by mouth daily. Active betamethasone valerate 0.1 % ointment Apply topically 2 (two) times a day. Active multivitamins-m inerals-folic ziut-oqxhjlz-zr tein (COMPLETE SENIOR) 0.4-300-250 mg-mcg-mcg Tab Take 1 tablet by mouth daily. Active omega-3 fatty acids-fish oil 340-1,000 mg Cap Take by mouth daily. Active glucosamine-cho ndroitin 500-400 mg Cap Take 1 capsule by mouth daily. Active cholecalciferol (VITAMIN D3) 1,000 unit tablet Take 1,000 Units by mouth daily. Active aspirin 325 MG tablet Take 325 mg by mouth daily. Active VIT C/VIT E/LUTEIN/MIN/OM EGA-3 (OCUVITE ORAL) Take by mouth. Activ e tolterodine (DETROL LA) 4 MG 24 hr capsule Take 4 mg by mouth daily. Active DOCOSAHEXANOIC ACID/EPA (FISH OIL ORAL) Take by mouth. Activ e meloxicam (MOBIC) 15 MG tablet Take 1 tablet (15 mg total) by mouth daily. 30 tablet 1 1 Active diclofenac sodium (VOLTAREN) 1 % Gel Apply 2 g topically 4 (four) times a day. 100 g 3 1 Active benzonatate (TESSALON) 100 MG capsule Take 1 capsule (100 mg total) by mouth 3 (three) times a day as needed for cough. 20 capsule 3 Active Active Problems Problem Noted Date Diagnosed Date Posterior tibial tendonitis, right 05/08/2021 Plantar fasciitis, left 05/08/2021 History of hyperparathyroidism 07/21/2009 Overview (01/04/2017): ?Primary hyperparathyroidism. H/o borderline iCa 1.29, PTH 118. C/b by nephrolithiasis. Serum total Ca have been normal, mostly <10 mg/dL. Phos normal. 25 vit D >20 ng/dL. He is asymptomatic. He does not have osteoporosis or fractures. Assessment & Plan (08/31/2022 4:19 PM EDT): DEXA 01/04/2017 was normal at the hip sites and 1/3 radius. Latter can be preferentially low in primary hyperparathyroidism, but his bone density is actually excellent at this site. Kidney function is stable. Ca and PTH both normal 08/2022. He does not have biochemical evidence of primary hyperparathyroidism. Continue diary, one calcium citrate and multivitamin daily Discharge from endocrine follow up Assessment & Plan (02/07/2018 4:20 PM EDT): Serum calcium levels remain normal. DEXA 01/04/2017 was normal at the hip sites and 1/3 radius. Latter can be preferentially low in primary hyperparathyroidism, but his bone density is actually excellent at this site. Will manage conservatively for now. Increase dietary calcium intake and decrease calcium supplementation. Assessment & Plan (01/04/2017 5:02 PM EST): Serum calcium levels remain normal. DEXA today 01/04/2017 was normal at the hip sites and 1/3 radius. Latter can be preferentially low in primary hyperparathyroidism, but his bone density is actually excellent at this site. Will manage conservatively for now. Kidney stone 07/01/2008 Overview (02/07/2018): Recurrent since his 30's. Typically an episode every 5 years. He has had multiple procedures [lithotripsy and stone retrieval] over the years. He is followed by a Urologist in [facility]. 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 Multiple 24 hour urine collections have shown: Ca on higher side around 300 mg, cysteine 200-300, oxalate around 40. Last episode was in 08/2015 when x-ray showed left-sided stone that he apparently passed spontaneously. In 01/2016 was found to have more stones, s/p cystoscopy, lithotripsy and stent. Assessment & Plan (08/31/2022 4:20 PM EDT): More stone procedures 2018 and 03/2022 24 hour urine 10/2021 showed relatively low urine output. Rest of risk factors were low Encouraged increased fluid intake BP high today. If an additional agent is needed, a thiazide diuretic should be considered [as it decreases urinary calcium excretion]. Assessment & Plan (02/07/2018 4:21 PM EDT): No symptomatic or radiologic evidence of stones 2017. Encouraged increased fluid intake. BP controlled today. If an additional agent is needed, a thiazide diuretic should be considered [as it decreases urinary calcium excretion]. Assessment & Plan (01/04/2017 4:59 PM EST): Renal US and labs were apparently unremarkable when he f/u urology 11/2015. In 01/2016 was found to have more stones, s/p cystoscopy, lithotripsy and stent. There is apparently still a tiny stone left. His fluid intake seems to be a bit lower than several years ago. We have recommended increased fluid intake and calcium citrate at each meal to bind oxalate. We will repeat 24 hour urine collections with Litholink to assess response to these interventions. Finally, BP was high today. If an additional agent is needed, a thiazide diuretic should be considered [as it decreases urinary calcium excretion]. Immunizations Immunization Administration Dates Next Due INFLUENZA, SPLIT VIRUS, TRIVALENT PF 08/05/2012 Influenza, Unspecified Formulation 08/09,08/16/2010,08/19/2009,2007,08/16/2007,09/13/2005,11/10/2004 Family History Medical History Relation Comments Hypercalcemia Neg Hx Nephrolithiasis Neg Hx Osteoporosis Neg Hx Social History Tobacco Use Types Packs/Day Years Used Date Smoking Tobacco: Never Smokeless Tobacco: Never Tobacco Cessation:Counseling Given: Not Answered Education Answer Date Recorded Are you interested [...] Sign Reading Time Taken Comments Blood Pressure 150/69 07/07/2025 3:56 PM EDT Pulse 89 07/07/2025 3:56 PM EDT Temperature 37.1 C (98.7 F) 05/04/2023 11:58 AM EDT Respiratory Rate 20 05/04/2023 11:58 AM EDT Oxygen Saturation 98% 05/04/2023 12:17 PM EDT Inhaled Oxygen Concentration - - Weight 104.3 kg (230 lb) 07/07/2025 3:56 PM EDT Height 182.9 cm (6') 04/07/2025 3:21 PM EDT Body Mass Index 31.19 04/07/2025 3:21 PM EDT Plan of Treatment Upcoming Encounters Date Type Department Care Team (Late st Contact Info) Description 07/27/2026 3:00 PM EDT Office Visit [facility] Cardiology Arrhythmia Service at the [facility] [place] [address] [facility], 5th [address], [address] [place] [address] Phoenix Jolley MD, MPH [address] [address] [email or web address] Health Maintenance Due Date Last Done Comments Adult Td,Tdap Booster 1940 POTASSIUM LEVEL 1941 DEPRESSION SCREENING 1953 ZOSTER VACCINES (1 of 2) 1991 RSV VACCINE (1 - 1-dose 75+ series) 2016 CREATININE LEVEL 08/16/2023 08/16/2022, 03/2018, 01/04/2017 INFLUENZA VACCINE (#1) 2025 , 07/24/2021, 07/06/2021, Additional history exists COVID-19 VACCINE ( season) 2025 04/05/2022, 09/01/2021, 01/12/2021, Additional history exists PNEUMOCOCCAL VACCINES (50+ years) Completed 12/02/2018, 09/07/2017 HEPATITIS A VACCINES Aged Out No long er eligible based on patient's age to complete this topic HIB VACCINES Aged Out No longer eligi ble based on patient's age to complete this topic MENINGOCOCCAL VACCINES (ACWY) Aged Out No longer eligible based on patient's age to complete this topic MENINGOCOCCAL VACCINES (B) Aged Out N o longer eligible based on patient's age to complete this topic Medical Devices Not on file Procedures Procedure Name Priority Date/Time Associated Diagnosis Comments CREATININE WITH ESTIMATED GLOMERULAR FILTRATION RATE (EGFR) Routine 08/16/2022 2:43 PM EDT Hyperparathyroidism from Last 3 Months or Most Recently Relevant to Health Maintenance Results * (ABNORMAL) Creatinine/eGFR (08/16/2022 2:43 PM EDT) CREATININE 1.40(H) 0.50 - 1.30 mg/dL [facility] EGFR 50(L) >60 mL/min/1.7 3m2 [facility] Comment:Estimated glomerular filtration rate calculated using the CKD-EPI refit equation. Blood 08/16/2022 2:43 PM EDT 08/16/2022 3:14 PM EDT us Hellen Meneses MD, MBBS LAB BLOOD BKR ORDERAB LES Final Result [facility] [address] [place] [address] from Last 3 Months or Most Recently Relevant to Health Maintenance Insurance MEDICARE PART A & B [facility] MEDICARE [facility] A & B [facility] MEDICARE PART A & B [facility] MEDICARE PART A & B [facility] MEDICARE PART A & B [facility] MEDICARE PART A & B [facility] MEDICARE PART A & B [facility] MEDICARE PART A & B [facility] MEDICARE PART A & B [facility] [employer] Care Teams Gasoline Dragline Operator Relationship Specialty Start Date End Date Stefany Plascencia MD [address] [place] [address] [address] [place] [address] PCP - General Internal Medicine 08/31/22 Nikhil Monique MD [address] [address] [email or web address] Forensic Accountant Nephrology 08/31/22 Nathanael Villagomez MD [address] [address] Urology 08/31/22 Additional Source Comments The information contained in this document represents components of the legal health record. It is not the complete legal health record.[facility]
--- OUTSIDE RECORDS SUMMARY | 2025-11-03 11:38 | XMS_ITS | Encounter Summary ---
Author Organization [facility] Address [address] [facility] [address] [place] [address] Phone Care Team Providers Care Basting Cleaner Name Role Phone Nikhil Monique MD Unavailable Nathanael Villagomez MD Unavailable [phone] Stefany Plascencia MD Primary Care Provide r Encounter Details Date Type Department Care Team (Late st Contact Info) Description 05/26/2024 Procedure Pass [facility] Holter Lab [address] [facility], 5th Floor, [address] [place] [address] Social History Tobacco Use Types Packs/Day Years [...] Description 07/27/2026 3:00 PM EDT Office Visit [facility] Cardiology Arrhythmia Service at the [facility] [address] [facility], 5th Floor, [address] [place] [address] Phoenix Jolley MD, MPH [address] [address] [email or web address] documented as of this encounter Visit Diagnoses Not on filedocumented in this encounter Care Teams Basting Cleaner Relationship Specialty Start Date End Date Stefany Plascencia MD [address] [place] [address] [address] [place] [address] PCP - General Internal Medicine 08/31/22 Nikhil Monique MD [address] [facility] [address] [facility] [address] [place] [address] [email or web address] Precision Assembler Bench Nephrology 08/31/22 Nathanael Villagomez MD [address] [place] [address] Urology 08/31/22 documented as of this encounter Additional Source Comments The information contained in this document represents components of the legal health record. It is not the complete legal health record.[facility]
--- OUTSIDE RECORDS SUMMARY | 2025-11-03 11:39 | XMS_ITS | Encounter Summary ---
Author Organization [facility] Address [address] [facility] [address] [place] [address] Phone Care Team Providers Care Steam Presser Name Role Phone Nikhil Monique MD Unavailable Nathanael Villagomez MD Unavailable [phone] Stefany Plascencia MD Primary Care Provide r Encounter Details Date Type Department Care Team (Late st Contact Info) Description 04/07/2025 Procedure Pass [facility] Cardiology [address] [facility], [address] [place] [id number] Social History Tobacco Use Types Packs/Day Years [...] Description 07/27/2026 3:00 PM EDT Office Visit [facility] Cardiology Arrhythmia Service at the [facility] [address] [facility], 5th Floor, [address] [place] [address] Phoenix Jolley MD, MPH [address] [address] [email or web address] documented as of this encounter Visit Diagnoses Not on filedocumented in this encounter Care Teams Steam Presser Relationship Specialty Start Date End Date Stefany Plascencia MD [address] [place] [address] [address] [place] [address] PCP - General Internal Medicine 08/31/22 Nikhil Monique MD [address] [address] [email or web address] Baby Formula Worker Nephrology 08/31/22 Nathanael Villagomez MD [address] [address] Urology 08/31/22 documented as of this encounter Additional Source Comments The information contained in this document represents components of the legal health record. It is not the complete legal health record.[facility]
--- OUTSIDE RECORDS SUMMARY | 2025-11-03 11:39 | XMS_ITS | Clinical Summary ---
Author Organization [facility] Address [address] [facility] [[email or web address] [address] [place] [address] Phone Care Team Providers Care Privacy Officer Name Role Phone Setfany Plascencia MD Primary Care Provider Allergies No known active allergies Medications tamsulosin [...] daily Active atorvastatin (LIPITOR) 20 MG tablet Active lansoprazole (PREVACID) [address] capsule Take 30 mg by mouth daily Active cholecalciferol (VITAMIN D-3) 25 MCG (1000 UT) tablet Take 1,000 Units by mouth daily Active [place]-3 1000 MG capsule Take by mouth daily Active Eliquis 5 MG tablet Take 5 mg by mouth in the morning and 5 mg in the evening. 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 07/27/2020 Inflamed seborrheic keratosis 07/27/2020 Other seborrheic keratosis 07/27/2020 Other melanin hyperpigmentation 07/27/2020 Other seborrheic dermatitis 07/27/2020 Encounter for follow-up exam ination after completed treatment for condition other than malignant neoplasm 09/05/2019 Overview (07/23/2025): Encounter for follow-up examination after completed treatment for conditions other than malignant neoplasm; Note: Date Diagnosed: 09/05/2019 2:43 PM (Z09) History of malignant neoplasm of skin 03/18/2018 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 H/o borderline iCa 1.29, PTH 118. C/b by nephrolithiasis. Serum total Ca have been normal, mostly <10 mg/dL. Phos normal. 25 vit D >20 ng/dL. He is asymptomatic. He does not have osteoporosis or fractures. 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 Typically an episode every 5 years. He has had multiple procedures [lithotripsy and stone retrieval] over the years. He is followed by a Urologist in [facility]. 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 [...] Sign Reading Time Taken Comments Blood Pressure 142/70 08/03/2025 1:04 PM EDT Pulse 53 08/03/2025 1:04 PM EDT Temperature - - Respiratory Rate - - Oxygen Saturation 99% 08/03/2025 1:04 PM EDT Inhaled Oxygen Concentration - - Weight 104 kg (229 lb 12.8 oz) 08/03/2025 1:04 P M EDT Height - - Body Mass Index - - Plan of Treatment Upcoming Encounters Date Type Department Care Team (Late st Contact Info) Description 04/08/2026 1:15 PM EDT Office Visit [facility] [address] [place] [address] Nikhil Monique MD [address] [facility] [address] [place] [address] Health Maintenance Due Date Last Done Comments Pneumococcal Vaccine: 50+ Years (1 of 2 - PCV) 1959 Influenza Vaccine (#1) 2025 2, 08/09/2011, 08/16/2010, Additional history exists Hepatitis B Vaccine Aged Out No longe r eligible based on patient's age to complete this topic Insurance Medicare [facility] Medicare [facility] Care Teams Privacy Officer Relationship Specialty Start Date End Date Stefany Plascencia MD [address] [place] [phone] PCP - General Internal Medicine 08/03/25
--- OUTSIDE RECORDS SUMMARY | 2025-11-03 11:39 | XMS_ITS | Encounter Summary ---
Author Organization [facility] Address [address] [facility] [address] [place] [address] Phone Care Team Providers Care Taxicab Dispatcher Name Role Phone Nikhil Monique MD Unavailable [phone] Nathanael Villagomez MD Unavailable Stefany Plascencia MD Primary Care Provide r Encounter Details Date Type Department Care Team (Late st Contact Info) Description 04/07/2025 Procedure Pass [facility] Holter Lab [address] [facility], 5th Floor, [address] [place] [address] Social History Tobacco Use Types Packs/Day Years [...] Description 07/27/2026 3:00 PM EDT Office Visit [facility] Cardiology Arrhythmia Service at the [facility] [address] [facility], 5th Floor, [address] [place] [address] Phoenix Jolley MD, MPH [address] [address] [email or web address] documented as of this encounter Visit Diagnoses Not on filedocumented in this encounter Care Teams Taxicab Dispatcher Relationship Specialty Start Date End Date Stefany Plascencia MD [address] [place] [address] [address] [place] [address] PCP - General Internal Medicine 08/31/22 Nikhil Monique MD [address] [facility] [address] [facility] [address] [place] [address] [email or web address] Source Inspector Nephrology 08/31/22 Nathanael Villagomez MD [address] [facility] [address] [place] [address] Urology 08/31/22 documented as of this encounter Additional Source Comments The information contained in this document represents components of the legal health record. It is not the complete legal health record.[facility]
[2025-11-03 12:16] LABS: Prostate Specific Antigen 1.66 ng/mL (<0.05-4.0)
== END 2025-11-03 09:14 | disposition home or self-care (01) ==
LOC: HO.LAB 09:13
PROVIDERS: PCP Internal Medicine; Visit Provider Urology
DX: R97.20 Elevated prostate specific antigen [PSA] (principal); Z12.5 Encounter for screening for malignant neoplasm of prostate
CPT/HCPCS: 36415; 84153